=== PATIENT | female | born 1940 | race Caucasian/White ===

== ENCOUNTER 2022-07-22 09:27 | Outpatient (REF) | payer MEDICARE, SELFPAY ==
[2022-07-22 11:14] LABS: MANUAL DIFF FLAG NO
[2022-07-22 11:22] LABS: Basophils Percent Auto 0.5 % (0-2); Eosinophils Absolute Auto 0.1 X10*3/uL (0.0-0.4); Eosinophils Percent Auto 1.3 % (0-4); Hematocrit 41.9 % (37.0-47.0); Hemoglobin 13.6 g/dl (12.0-16.0); Imm Gran Abs Auto 0.03 X10*3/uL (0.00-0.03); Imm Gran Pct Auto 0.4 % (0.0-0.4); Lymphocytes Absolute Auto 2.1 X10*3/uL (1.2-4.9); Lymphocytes Percent Auto 25.1 % (20-40); Mean Corpuscular HGB Conc 32.5 g/dl (31.0-35.0); Mean Corpuscular Hemoglobin 31.2 pg (27.0-33.0); Mean Corpuscular Volume 96.1 fL (80.0-98.0); Mean Platelet Volume 10.5 fL (9.4-12.3); Monocytes Absolute Auto 0.6 X10*3/uL (0.1-1.2); Monocytes Percent Auto 7.5 % (2-11); Neutrophils Absolute Auto 5.4 x10*3/uL (2.0-8.3); Neutrophils Percent Auto 65.2 % (45-73); Platelet Count 250 X10*3/uL (160-400); Red Blood Count 4.36 X10*6/uL (4.20-5.50); Red Cell Distribution Width 14.4 % (11.0-16.0); White Blood Count 8.3 X10*3/uL (4.8-10.8)
[2022-07-22 11:55] LABS: Alanine Aminotransferase 10 U/L (0-31); Anion Gap 14 (12-20); Aspartate Amino Transferase 16 U/L (5-31); Blood Urea Nitrogen 16 mg/dL (9-16); Calcium 9.5 mg/dL (8.4-10.2); Carbon Dioxide 26 mmol/L (22-29); Chloride 106 mmol/L (96-108); Cholesterol 180 mg/dL; Estimated Glomerular Filt Rate > 60; Glucose Fasting 91 mg/dL (60-99); HDL Cholesterol 68 mg/dL; LDL Cholesterol Calculated 97 mg/dl; Potassium 4.4 mmol/L (3.3-5.1); Sodium 142 mmol/L (135-145); Triglycerides 76 mg/dL
[2022-07-22 11:57] LABS: Free T4 (Free Thyroxine) 1.14 ng/dL (0.71-1.85); Thyroid Stimulating Hormone 0.88 uIU/mL (0.32-4.0); Vitamin D 25-OH Total 22.8 ng/mL (>30)
== END 2022-07-22 09:28 | disposition home or self-care (01) ==
LOC: HO.HMGCLDS 09:27
PROVIDERS: PCP Internal Medicine; Visit Provider Internal Medicine
DX: E78.5 Hyperlipidemia, unspecified (principal); M85.88 Other specified disorders of bone density and structure, other site; E03.9 Hypothyroidism, unspecified
CPT/HCPCS: 36415; 80048; 80061; 82306; 84439; 84443; 84450; 84460; 85025

== ENCOUNTER 2022-08-30 09:09 | Outpatient (REF) | payer MEDICARE, SELFPAY ==
--- NOTE | ~2022-08-30 | MM_ITS ---
EXAMINATION: MM SCREENING DIGITAL BREAST TOMOSYNTHESIS, BILATERAL CLINICAL INFORMATION: Screening. Asymptomatic. The lifetime risk of breast cancer based on the Tyrer-Cuzick Model is 1.1%. COMPARISON: Mammography: July 31, 2020 and studies dating back to July 24, 2018 TECHNIQUE: Digital breast tomosynthesis is performed in both the craniocaudal and mediolateral oblique views along with computer-aided detection (CAD). Synthesized 2D images are generated from the tomosynthesis. FINDINGS: There are scattered areas of fibroglandular density (ACR BI-RADS breast composition Category b). There are no significant masses, abnormal calcifications, or other abnormalities. MM/MM tomosynthesis screening BI IMPRESSION: No significant changes from prior exam. ASSESSMENT: BI-RADS 1: Negative RECOMMENDATION: Routine annual mammography screening. This patient's information was entered into a reminder system with a target due date for their next mammogram.
== END 2022-08-30 09:10 | disposition home or self-care (01) ==
LOC: HO.MAMMO 09:09
PROVIDERS: PCP Internal Medicine; Visit Provider Internal Medicine
DX: Z12.31 Encounter for screening mammogram for malignant neoplasm of breast (principal)
CPT/HCPCS: 77063; 77067

== ENCOUNTER 2023-01-18 07:30 | Outpatient (REF) | payer MEDICARE, SELFPAY ==
[2023-01-18 12:58] LABS: Alanine Aminotransferase 10 U/L (0-31); Aspartate Amino Transferase 16 U/L (5-31); Cholesterol 176 mg/dL; HDL Cholesterol 61 mg/dL; LDL Cholesterol Calculated 100 mg/dl; Triglycerides 75 mg/dL
[2023-01-18 13:30] LABS: Free T4 (Free Thyroxine) 1.25 ng/dL (0.71-1.85); Thyroid Stimulating Hormone 1.72 uIU/mL (0.32-4.0); Vitamin D 25-OH Total 32.5 ng/mL (>30)
== END 2023-01-18 07:31 | disposition home or self-care (01) ==
LOC: HO.HMGCLDS 07:30
PROVIDERS: PCP Internal Medicine; Visit Provider Internal Medicine
DX: E03.9 Hypothyroidism, unspecified (principal); E55.9 Vitamin D deficiency, unspecified; M85.88 Other specified disorders of bone density and structure, other site; E78.5 Hyperlipidemia, unspecified
CPT/HCPCS: 36415; 80061; 82306; 84439; 84443; 84450; 84460

== ENCOUNTER 2023-01-19 10:47 | Outpatient (AMB) | payer MEDICARE, SELFPAY ==
--- NOTE | 2023-01-19 11:43 | MHC.PC.OV ---
Vital Signs 01/19/23 11:44 Height 5 ft Weight 137 lb BMI 26.7 BP 130/80 Blood Pressure Location Lt brachial Position Sitting Pulse 100 Pulse Source Pulse Oximeter Pulse Oximetry (%) 98 Oxygen Delivery Method Room Air Intake Visit Reasons: 6 Month ffup lipids ,thyroid Intake Note: Patient here for lipids and thyroid follow up, she would also like to talk about these panic attacks that shes been having lately, she is very anxious as she just had her pass away in september and she doesn't want to go or talk to people she would like to discuss possible med to help with her anxiety. Allergies From LIPITOR Allergy (Severe, Uncoded 05/19/24 00:45) HIVES Medication List - Last Reconciled 01/19/23 by Elizabet Skinner MD Advair Diskus 250-50 mcg/dose (fluticasone propion-salmeterol) 1 ea PO BID NS calcium carb,lactat-vitamin D3 200 mg-6.25 mcg (250 unit) 2 tabs PO DAILY cholecalciferol (vitamin D3) 1,250 mcg PO QWEEK 3 months ezetimibe 10 mg PO DAILY levothyroxine 50 mcg PO DAILY Tobacco use date assessed: 01/19/23 HPI 6 Month ffup lipids ,thyroid HPI Details 82-year-old lady with acquired hypothyroidism, dyslipidemia, here today for her follow-up. She has been compliant with taking her medications and compliant with diet. She however has been having frequent anxiety attacks, since the passing of her 3 and half months ago. Does not want to be referred for counseling but would like to see if she can be prescribe something for her anxiety attacks. [facility] Medical History (Updated 05/19/24 @ 00:59 by Elizabet Skinner MD) Depression with anxiety Vitamin D deficiency Hiatal hernia COPD (chronic obstructive pulmonary disease) Osteopenia of lumbar spine Acquired hypothyroidism Dyslipidemia Osteoarthritis Carpal tunnel syndrome on both sides Hx of gallstones Surgical History Hx laparoscopic cholecystectomy History of partial hysterectomy Hx of appendectomy Family History Mother CVA (cerebral vascular accident) Acquired hypothyroidism Atrial fibrillation Father CVA (cerebral vascular accident) Diabetes mellitus Brother Diabetes mellitus Social History Housing: House Patient Tobacco Use Status: Former Tobacco user e-Cigarette/Vaping Use: Never Used Current occupational status: retired Cognitive needs: No Hearing needs: No Vision needs: Yes Questionnaire PHQ-9 Over the last 2 weeks, how often have you been bothered by any of the following problems? 1. Little interest or pleasure in doing things: several days 2. Feeling down, depressed, or hopeless: several days 3. Trouble falling or staying asleep, or sleeping too much: several days 4. Feeling tired or having little energy: not at all 5. Poor appetite or overeating: several days 6. Feeling bad about yourself - or that you are a failure or have let yourself or your family down: not at all 7. Trouble concentrating on things, such as reading the newspaper or watching television: several days 8. Moving or speaking so slowly that other people could have noticed. Or the opposite - being so fidgety or restless that you have been moving around a lot more than usual: not at all 9. Thoughts that you would be better off or of hurting yourself in some way: not at all Total score: 5 Depression Screening Interpretation: Positive (Depression and anxiety, started on buspirone today. Referred to our mental health coordinator for assistance in getting in to see therapy) Depression Screening Follow-up: New Medication prescribed and Community Mental Health Worker F/U Source: Developed by Drs. Alireza Donovan, Guadalupe Lopez, Sanjeev Mari and colleagues, with an educational keely from [employer]. Thrive Questionnaire Date Thrive assessed: 07/22/22 CHRISTIANO-7 AMB Questionnaire CHRISTIANO-7 Date CHRISTIANO - 7 assessed: 01/19/23 Feeling nervous, anxious, or on edge: 1 = Several days Not being able to stop or control worryin = Several days Worrying too much about different things: 1 = Several days Trouble relaxin = Several days Being so restless that it is hard to sit still: 0 = Not at all Becoming easily annoyed or irritable: 1 = Several days Feeling afraid as if something awful might happen: 0 = Not at all Total CHRISTIANO-7 score (0-4 normal; 5-9 mild; 10-14 moderate; 15-21 severe): 5 Source: Developed by Drs. Alireza Donovan, Guadalupe Lopez, Sanjeev Mari and colleagues, with an educational keely from [employer]. CHRISTIANO-7 Assessment Billing CHRISTIANO-7 Assessment Tool: CHRISTIANO-7 Assessment 53073 Review of Systems Const Denies fatigue, Denies fever(s), Denies headache(s) and Denies weakness ENT Denies dizziness, Denies headache(s), Denies nasal congestion, Denies nasal discharge and Denies sore throat Card Denies chest pain, Denies lightheadedness, Denies palpitations and Denies dyspnea Resp Denies chest congestion, Denies cough and Denies dyspnea GI Denies abdominal pain, Denies change in bowel habits and Denies heartburn Denies hematuria, Denies urinary frequency, Denies dysuria and Denies urinary urgency Musc Denies deformity, Reports arthralgias (Fingers and wrist), Denies joint swelling and Denies limited range of motion Skin/Breast Denies breast pain, Denies breast mass, Denies lesions and Denies rash Neuro Denies dizziness, Denies headache(s) and Denies weakness Psych Reports as per HPI Endo Denies fatigue, Denies polydipsia, Denies polyuria and Denies palpitations Physical exam (Primary Care) Vital Signs: Last Vital Signs Pulse 100 01/19/23 11:44 BP 130/80 01/19/23 11:44 Pulse Ox 98 01/19/23 11:44 Oxygen Delivery Method Room Air 01/19/23 11:44 BMI result Body Mass Index 26.7 Tobacco/Smoking Status: Tobacco use Status Tobacco use date assessed 01/19/23 01/19/23 11:50 Patient Tobacco Use Status Current someday Tobacco 01/19/23 11:50 e-Cigarette/Vaping Use Never Used 01/19/23 11:50 PHQ-9: PHQ-9 Score PHQ-9: Total score 5 05/19/24 00:56 Depression Screening Interpretation: Positive (Depression and anxiety, started on buspirone today. Referred to our mental health coordinator for assistance in getting in to see therapy) Depression Screening Follow-up: New Medication prescribed and Community Mental Health Worker F/U Thrive Assessment: Date of Thrive Assessment Date Thrive assessed 07/22/22 01/19/23 11:50 Const General: comfortable, no acute distress, alert and Physically active Orientation/consciousness: patient oriented x3 HENMT Head: Yes normocephalic and Yes atraumatic Ears: hearing grossly normal bilaterally, external ears normal, TM's normal bilaterally and EAC's normal General nose exam: Normal external nose present and No nasal discharge present Face and sinus: Yes face symmetric Mouth: Normal oral and palatal mucosa present, tongue normal, oropharynx normal and moist mucous membranes Eyes General: appearance normal, both eyes and all related structures Neck Other: Supple, no lymphadenopathy, thyroid gland nonpalpable and nontender to palpation Chest Breast/axilla palpation: normal palpation of the breasts Resp Effort & Inspection: normal respiratory effort and able to speak in complete sentences Auscultation: clear to auscultation bilaterally Cardio Other: S1-S2 present regular rate and rhythm GI Palpation (GI): Soft to palpation, nontender, no guarding and no masses Auscultation: normal bowel sounds Back/Spine/Pelvis Back: No back tenderness Neuro General: patient oriented x3, gait normal, tone normal, moves all extremities, Normal light touch and pain sensation, no focal motor deficits and CN's II-XI intact bilaterally Cognition (Neuro): normal cognition Gait exam (Neuro): Normal gait present Extrem General: Yes full ROM, Yes no joint enlargement, Yes no clubbing, cyanosis or edema, Yes no calf tenderness and Yes normal gait Psych Appearance: grossly normal and well kempt Mental Status: mental status grossly normal Speech and movement: Normal speech and movement present and Clear speech present Affect: Sad affect present Attitude: cooperative Thought process: Normal thought process present Results Reviewed Results Reviewed: ENTERED: 01/18/23 OTHR HOLMAN: ORDERED: AST, ALT, Lipid Panel, Vitamin D 25-OH, Free T4, TSH Test Result Flag Reference Site AST (GOT) 16 5-31 U/L ALT (GPT) 10 0-31 U/L Triglyceride 75 mg/dL Desirable Triglyceride: less than 150 mg/dL Borderline High Triglyceride 150-199 mg/dL High Triglyceride: 200-499 mg/dL Very High Triglyceride: greater than or equal to 5OO mg/dL Chol 176 mg/dL Desirable Cholesterol: less than 200 mg/dL Borderline High Cholesterol: 200-239 mg/dL High Cholesterol: greater than 239 mg/dL LDL Calculated 100 mg/dl Desirable LDL: less than 100 mg/dL Near Optimal/Above Optimal LDL: 110-129 mg/dL Borderline High LDL: 130-159 mg/dL High LDL: 160-189 mg/dL Very High LDL: greater than or equal to 190 mg/dL HDL 61 mg/dL Desirable HDL: greater than 40 mg/dL Note: This HDL assay may give artificially low results in patients with liver disease. Vit D 25-OH Tot 32.5 >30 ng/mL Health Based Reference Values* < 20 ng/mL Deficient 20-30 ng/mL Insufficient > 30 ng/mL Sufficient *Amaris MILLER. N Engl J Med. 2007;357:266-280 Care must be taken in interpreting Vitamin D results from different laboratories and methodologies. Published data demonstrated that results from patients undergoing hemodialysis may show a negative bias when tested with various automated 25-OH vitamin D assays when compared to LC-MS/MS. When testing samples from patients whose predominant form of Vitamin D is Vitamin D2, such as patients receiving Vitamin D2 supplementation, results that are subtherapeutic should be confirmed with another method such as LC-MS/MS. Free T4 1.25 0.71-1.85 ng/dL TSH 3rd Gen. 1.72 0.32-4.0 uIU/mL TSH 3rd Generation ([facility]) Assessment and Plan Assessment & Plan (1) Acquired hypothyroidism: Code(s): E03.9 - Hypothyroidism, unspecified Plan: Latest thyroid levels are within normal limits, will continue on current dose of levothyroxine 50 mcg daily (2) Dyslipidemia: Code(s): E78.5 - Hyperlipidemia, unspecified Plan: Reviewed recent fasting lipid profile with patient with levels within normal limits . Continue ezetimibe 10 mg daily , in addition to adherence to low-cholesterol diet and regular exercise, at least 30 minutes 3 to 4 times a week. Advised patient to make healthy food choices, eat more fruits, vegetables, whole grains, wild caught fish and low-fat dairy. Limit amount of meat and fried or fatty food products, as well as processed foods and fast foods. Follow-up scheduled with repeat fasting lipid panel in months. (3) Depression with anxiety: Code(s): F41.8 - Other specified anxiety disorders Plan: Referred to [facility] mental health coordinator for assistance in getting in to see a therapist but patient declines, stating she has a very good support system with her family. Will start her on buspirone 5 mg per tablet to take 1 tablet twice a day. Will see her back for follow-up in 4 weeks Medications: New buspirone 5 mg PO TID 90 tabs 1RF F41.8 - Other specified anxiety disorders Coding Level of Care Code Est Pt Level 4 (45925) Complex EM visit Add On G2211 Diagnoses Acquired hypothyroidism E03.9 Dyslipidemia E78.5 Depression with anxiety F41.8 Additional Codes CHRISTIANO-7 Assessment Billing - CHRISTIANO-7 Assessment Tool: CHRISTIANO-7 Assessment 70627 ([id number])
[2023-01-19 11:44] VITALS: BP 130/80; PULSE 100; O2SAT 98; BMI 26.7
== END 2023-01-19 12:40 | disposition home or self-care (01) ==
LOC: HO.HMGC 10:47
PROVIDERS: PCP Internal Medicine; Visit Provider Internal Medicine
DX: E03.9 Hypothyroidism, unspecified (principal); E78.5 Hyperlipidemia, unspecified; F41.8 Other specified anxiety disorders
CPT/HCPCS: 99499

== ENCOUNTER 2023-02-16 10:18 | Outpatient (AMB) | payer MEDICARE, SELFPAY ==
--- NOTE | 2023-02-16 10:26 | MHC.PC.OV ---
Vital Signs 02/16/23 10:28 Height 5 ft Weight 137 lb 4 oz BMI 26.8 BP 102/58 L Blood Pressure Location Rt brachial Position Sitting Pulse 79 Pulse Source Pulse Oximeter Pulse Oximetry (%) 98 Oxygen Delivery Method Room Air Intake Visit Reasons: 4wk follow up Intake Note: Pt is here today for her 4 week f/u Allergies From LIPITOR Allergy (Severe, Uncoded 05/19/24 00:45) HIVES Medication List - Last Reconciled 02/16/23 by Elizabet Skinner MD Advair Diskus 250-50 mcg/dose (fluticasone propion-salmeterol) 1 ea PO BID NS buspirone 5 mg PO TID calcium carb,lactat-vitamin D3 200 mg-6.25 mcg (250 unit) 2 tabs PO DAILY ezetimibe 10 mg PO DAILY levothyroxine 50 mcg PO DAILY Tobacco use date assessed: 02/16/23 Fall risk assessment: No Falls in past year Last assessed Fall Risk: 02/16/23 HPI 4wk follow up HPI Details 83-year-old lady here today for follow-up on her depression and anxiety. Was prescribed buspirone 5 mg but stopped taking it stating that she has been feeling better with regards to her anxiety depression. [facility] Medical History (Updated 05/19/24 @ 01:08 by Elizabet Skinner MD) Vitamin D deficiency Hiatal hernia COPD (chronic obstructive pulmonary disease) Osteopenia of lumbar spine Acquired hypothyroidism Dyslipidemia Osteoarthritis Carpal tunnel syndrome on both sides Hx of gallstones Surgical History Hx laparoscopic cholecystectomy History of partial hysterectomy Hx of appendectomy Family History Mother CVA (cerebral vascular accident) Acquired hypothyroidism Atrial fibrillation Father CVA (cerebral vascular accident) Diabetes mellitus Brother Diabetes mellitus Social History Housing: House Patient Tobacco Use Status: Former Tobacco user e-Cigarette/Vaping Use: Never Used Current occupational status: retired Cognitive needs: No Hearing needs: No Vision needs: Yes Questionnaire Thrive Questionnaire Date Thrive assessed: 07/22/22 AUDIT C Alcohol Use Questionnaire (AUDIT-C) 1. How often do you have a drink containing alcohol?: Monthly or less 2. How many drinks containing alcohol do you have on a typical day when you are drinking?: 1 or 2 3. How often do you have six or more drinks on one occasion?: Never Total Score: 1 CHRISTIANO-7 AMB Questionnaire CHRISTIANO-7 Date CHRISTIANO - 7 assessed: 01/19/23 Source: Developed by Drs. Alireza Donovan, Guadalupe Lopez, Sanjeev Mari and colleagues, with an educational keely from [employer]. Review of Systems Const Denies fatigue, Denies headache(s) and Denies weakness ENT Denies dizziness, Denies headache(s) and Denies nasal congestion Card Denies chest pain, Denies lightheadedness, Denies palpitations and Denies dyspnea Resp Denies chest congestion, Denies cough and Denies dyspnea GI Denies abdominal pain, Denies change in bowel habits and Denies heartburn Denies hematuria, Denies urinary frequency, Denies dysuria and Denies urinary urgency Musc Denies deformity, Reports arthralgias (Fingers and wrist), Denies joint swelling and Denies limited range of motion Neuro Denies dizziness, Denies headache(s) and Denies weakness Psych Reports no additional complaints, Denies anxiety and Denies depression Endo Denies fatigue, Denies polydipsia, Denies polyuria and Denies palpitations Bandar/Lymph Reports no additional complaints Aller/Immun Reports no additional complaints Physical exam (Primary Care) Vital Signs: Last Vital Signs Pulse 79 02/16/23 10:28 BP 102/58 L 02/16/23 10:28 Pulse Ox 98 02/16/23 10:28 Oxygen Delivery Method Room Air 02/16/23 10:28 BMI result Body Mass Index 26.8 Tobacco/Smoking Status: Tobacco use Status Tobacco use date assessed 02/16/23 02/16/23 10:37 Patient Tobacco Use Status Current someday Tobacco 02/16/23 10:26 e-Cigarette/Vaping Use Never Used 02/16/23 10:26 Thrive Assessment: Date of Thrive Assessment Date Thrive assessed 07/22/22 02/16/23 10:26 Const General: no acute distress and alert Orientation/consciousness: patient oriented x3 HENMT Head: Yes normocephalic Ears: external ears normal General nose exam: Normal external nose present Face and sinus: Yes face symmetric Mouth: Normal oral and palatal mucosa present, tongue normal and moist mucous membranes Eyes General: appearance normal, both eyes and all related structures Neck Other: Supple, no lymphadenopathy, thyroid gland nonpalpable and nontender to palpation Resp Effort & Inspection: normal respiratory effort and able to speak in complete sentences Auscultation: clear to auscultation bilaterally Cardio Other: S1-S2 present regular rate and rhythm GI Palpation (GI): Soft to palpation, nontender, no guarding and no masses Auscultation: normal bowel sounds Back/Spine/Pelvis Back: No back tenderness Neuro General: patient oriented x3, gait normal, tone normal, moves all extremities, Normal light touch and pain sensation, no focal motor deficits and CN's II-XI intact bilaterally Cognition (Neuro): normal cognition Gait exam (Neuro): Normal gait present Extrem General: Yes full ROM, Yes no joint enlargement, Yes no clubbing, cyanosis or edema, Yes no calf tenderness and Yes normal gait Psych Appearance: grossly normal and well kempt Mental Status: mental status grossly normal Speech and movement: Normal speech and movement present and Clear speech present Affect: normal affect Attitude: cooperative Thought process: Normal thought process present Results Reviewed Results Reviewed: Name: Vikki Phillips Age/Sex: 82/F : 1940 Unit#: [id number] Attend Dr: Elizabet Skinner MD Re01/18/23 Status: DEP REF Location: [facility] Disch: SPEC : [id number] GABRIELA: 01/18/23 STATUS: COMP REQ : [id number] RECD: 01/18/[address]: Elizabet Skinner MD COMP: 01/18/23 ENTERED: 01/18/[address]: ORDERED: AST, ALT, Lipid Panel, Vitamin D 25-OH, Free T4, TSH Test Result Flag Reference Site AST (GOT) 16 5-31 U/L ALT (GPT) 10 0-31 U/L Triglyceride 75 mg/dL Desirable Triglyceride: less than 150 mg/dL Borderline High Triglyceride 150-199 mg/dL High Triglyceride: 200-499 mg/dL Very High Triglyceride: greater than or equal to 5OO mg/dL Chol 176 mg/dL Desirable Cholesterol: less than 200 mg/dL Borderline High Cholesterol: 200-239 mg/dL High Cholesterol: greater than 239 mg/dL LDL Calculated 100 mg/dl Desirable LDL: less than 100 mg/dL Near Optimal/Above Optimal LDL: 110-129 mg/dL Borderline High LDL: 130-159 mg/dL High LDL: 160-189 mg/dL Very High LDL: greater than or equal to 190 mg/dL HDL 61 mg/dL Desirable HDL: greater than 40 mg/dL Note: This HDL assay may give artificially low results in patients with liver disease. Vit D 25-OH Tot 32.5 >30 ng/mL Health Based Reference Values* < 20 ng/mL Deficient 20-30 ng/mL Insufficient > 30 ng/mL Sufficient *Amaris MILLER. N Engl J Med. 2007;357:266-280 Care must be taken in interpreting Vitamin D results from different laboratories and methodologies. Published data demonstrated that results from patients undergoing hemodialysis may show a negative bias when tested with various automated 25-OH vitamin D assays when compared to LC-MS/MS. When testing samples from patients whose predominant form of Vitamin D is Vitamin D2, such as patients receiving Vitamin D2 supplementation, results that are subtherapeutic should be confirmed with another method such as LC-MS/MS. Free T4 1.25 0.71-1.85 ng/dL TSH 3rd Gen. 1.72 0.32-4.0 uIU/mL TSH 3rd Generation ([facility]) Assessment and Plan Assessment & Plan (1) COPD (chronic obstructive pulmonary disease): Code(s): J44.9 - Chronic obstructive pulmonary disease, unspecified Plan: Currently controlled on Wixela 250-50 mcg per dose 1 inhalation every 12 hours and uses albuterol inhaler as needed for episodes of wheezing and bronchospasm. (2) Osteopenia of lumbar spine: Comment: last bone density 2020 per pt Code(s): M85.88 - Other specified disorders of bone density and structure, other site Plan: Continue with staying active doing regular weight-bearing exercise. Continue with calcium and vitamin-D 3 supplement Orders: Orders Lipid Panel 6 Months E55.9 - Vitamin D deficiency, unspecified, J44.9 - Chronic obstructive pulmonary disease, unspecified, M85.88 - Other specified disorders of bone density and structure, other site, E03.9 - Hypothyroidism, unspecified, E78.5 - Hyperlipidemia, unspecified, Z78.0 - Asymptomatic menopausal state Free T4 (Free Thyroxine) 6 Months E03.9 - Hypothyroidism, unspecified, E55.9 - Vitamin D deficiency, unspecified, J44.9 - Chronic obstructive pulmonary disease, unspecified, M85.88 - Other specified disorders of bone density and structure, other site, E78.5 - Hyperlipidemia, unspecified, Z78.0 - Asymptomatic menopausal state Thyroid Stimulating Hormone 6 Months E55.9 - Vitamin D deficiency, unspecified, J44.9 - Chronic obstructive pulmonary disease, unspecified, M85.88 - Other specified disorders of bone density and structure, other site, E03.9 - Hypothyroidism, unspecified, E78.5 - Hyperlipidemia, unspecified, Z78.0 - Asymptomatic menopausal state Alanine Aminotransferase 6 Months E55.9 - Vitamin D deficiency, unspecified, J44.9 - Chronic obstructive pulmonary disease, unspecified, M85.88 - Other specified disorders of bone density and structure, other site, E03.9 - Hypothyroidism, unspecified, E78.5 - Hyperlipidemia, unspecified, Z78.0 - Asymptomatic menopausal state Aspartate Amino Transferase 6 Months E55.9 - Vitamin D deficiency, unspecified, J44.9 - Chronic obstructive pulmonary disease, unspecified, M85.88 - Other specified disorders of bone density and structure, other site, E03.9 - Hypothyroidism, unspecified, E78.5 - Hyperlipidemia, unspecified, Z78.0 - Asymptomatic menopausal state Vitamin D 25-OH Total 6 Months E55.9 - Vitamin D deficiency, unspecified, J44.9 - Chronic obstructive pulmonary disease, unspecified, M85.88 - Other specified disorders of bone density and structure, other site, E03.9 - Hypothyroidism, unspecified, E78.5 - Hyperlipidemia, unspecified, Z78.0 - Asymptomatic menopausal state Medications: Refilled ezetimibe 10 mg PO DAILY 30 tabs 5RF Coding Level of Care Code Est Pt Level 4 (84277) Complex EM visit Add On G2211 Diagnoses COPD (chronic obstructive pulmonary disease) J44.9 Osteopenia of lumbar spine M85.88
[2023-02-16 10:28] VITALS: BP 102/58; PULSE 79; O2SAT 98; BMI 26.8
== END 2023-02-16 11:28 | disposition home or self-care (01) ==
LOC: HO.HMGC 10:18
PROVIDERS: PCP Internal Medicine; Visit Provider Internal Medicine
DX: J44.9 Chronic obstructive pulmonary disease, unspecified (principal); M85.88 Other specified disorders of bone density and structure, other site
CPT/HCPCS: 99499

== ENCOUNTER 2023-08-09 13:01 | Outpatient (AMB) | payer MEDICARE, SELFPAY ==
[2023-08-09 13:06] VITALS: BP 120/70; PULSE 77; O2SAT 98; BMI 26.4
--- NOTE | 2023-08-09 13:06 | A.OFFPC_ITS ---
Vital Signs 08/09/23 13:06 Height 5 ft Weight 135 lb BMI 26.4 BP 120/70 Blood Pressure Location Lt brachial Position Sitting Pulse 77 Pulse Source Pulse Oximeter Pulse Oximetry (%) 98 Oxygen Delivery Method Room Air Intake Visit Reasons: 6m follow up / Rash On Body Intake Note: patient is here today for her 6mo. f/u rash on body Allergies From [facility] Allergy (Severe, Uncoded 05/19/24 00:45) HIVES Medication List - Last Reconciled 08/09/23 by Elizabet Skinner MD Advair Diskus 250-50 mcg/dose (fluticasone propion-salmeterol) 1 ea PO BID NS calcium carb,lactat-vitamin D3 200 mg-6.25 mcg (250 unit) 2 tabs PO DAILY ezetimibe 10 mg PO DAILY levothyroxine 50 mcg PO DAILY Tobacco use date assessed: 08/09/23 Fall risk assessment: 2 + Falls in past year Last assessed Fall Risk: 08/09/23 Dental Screening Dental Screen Date: 08/09/23 Did you have a dental visit in the last 12 months?: Yes Did you have a dental problem in the last 6 months where you did not have access to dental care?: No Was dental information given to patient?: Patient has dentist HPI 6m follow up / Rash On Body HPI Details 83-year-old lady with hypothyroidism, [place] PD, osteopenia and dyslipidemia, here today for her six-month follow-up. Has been compliant with taking her medications and tries to follow recommended diet, stays active. Complains of recurrent itchiness all over her body especially at night. States that she can feel some rough patches on her arms and legs which are itchy. None seen during this visit [facility] Medical History Anxious depression Vitamin D deficiency Hiatal hernia COPD (chronic obstructive pulmonary disease) Osteopenia of lumbar spine Acquired hypothyroidism Dyslipidemia Osteoarthritis Carpal tunnel syndrome on both sides Hx of gallstones Surgical History Hx laparoscopic cholecystectomy History of partial hysterectomy Hx of appendectomy Family History Mother CVA (cerebral vascular accident) Acquired hypothyroidism Atrial fibrillation Father CVA (cerebral vascular accident) Diabetes mellitus Brother Diabetes mellitus Social History Housing: House Patient Tobacco Use Status: Former Tobacco user e-Cigarette/Vaping Use: Never Used Current occupational status: retired Cognitive needs: No Hearing needs: No Vision needs: Yes Questionnaire Thrive Questionnaire Date Thrive assessed: 07/22/22 AUDIT C Alcohol Use Questionnaire (AUDIT-C) 1. How often do you have a drink containing alcohol?: Monthly or less 2. How many drinks containing alcohol do you have on a typical day when you are drinking?: 1 or 2 Total Score: 1 CHRISTIANO-7 AMB Questionnaire CHRISTIANO-7 Date CHRISTIANO - 7 assessed: 01/19/23 Source: Developed by Drs. Alireza Donovan, Guadalupe Lopez, Sanjeev Mari and colleagues, with an educational keely from [employer]. Review of Systems Const Denies fatigue, Denies fever(s), Denies headache(s) and Denies weakness ENT Denies dizziness, Denies headache(s), Denies nasal congestion, Denies nasal discharge and Denies sore throat Card Denies chest pain, Denies lightheadedness, Denies palpitations and Denies dyspnea Resp Denies chest congestion, Denies cough and Denies dyspnea GI Denies abdominal pain, Denies change in bowel habits and Denies heartburn Denies hematuria, Denies urinary frequency, Denies dysuria and Denies urinary urgency Musc Denies deformity, Reports arthralgias (Fingers and wrist), Denies joint swelling and Denies limited range of motion Skin/Breast Reports as per HPI Neuro Denies dizziness, Denies headache(s) and Denies weakness Psych Reports as per HPI Endo Denies fatigue, Denies polydipsia, Denies polyuria and Denies palpitations Bandar/Lymph Reports no additional complaints Aller/Immun Reports no additional complaints Physical exam (Primary Care) Vital Signs: Last Vital Signs Pulse 77 08/09/23 13:06 BP 120/70 08/09/23 13:06 Pulse Ox 98 08/09/23 13:06 Oxygen Delivery Method Room Air 08/09/23 13:06 BMI result Body Mass Index 26.4 Tobacco/Smoking Status: Tobacco use Status Tobacco use date assessed 08/09/23 08/09/23 13:08 Patient Tobacco Use Status Former Tobacco user 08/09/23 13:28 e-Cigarette/Vaping Use Never Used 08/09/23 13:08 Thrive Assessment: Date of Thrive Assessment Date Thrive assessed 07/22/22 08/09/23 13:08 Const General: comfortable, no acute distress, alert and Physically active Orientation/consciousness: patient oriented x3 HENMT Head: Yes normocephalic Ears: hearing grossly normal bilaterally, external ears normal, TM's normal bilaterally and EAC's normal General nose exam: Normal external nose present and No nasal discharge present Face and sinus: Yes face symmetric Mouth: Normal oral and palatal mucosa present, tongue normal, oropharynx normal and moist mucous membranes Eyes General: appearance normal, both eyes and all related structures Neck Other: Supple, no lymphadenopathy, thyroid gland nonpalpable and nontender to palpation Chest Breast/axilla palpation: normal palpation of the breasts Resp Effort & Inspection: normal respiratory effort and able to speak in complete sentences Auscultation: clear to auscultation bilaterally Cardio Other: S1-S2 present regular rate and rhythm GI Palpation (GI): Soft to palpation, nontender, no guarding and no masses Auscultation: normal bowel sounds Back/Spine/Pelvis Back: No back tenderness Skin General skin exam: ecchymosis (On arms noted), no purpura and no scars Neuro General: patient oriented x3, gait normal, tone normal, moves all extremities, Normal light touch and pain sensation, no focal motor deficits and CN's II-XI intact bilaterally Cognition (Neuro): normal cognition Gait exam (Neuro): Normal gait present Extrem General: Yes full ROM, Yes no joint enlargement, Yes no clubbing, cyanosis or edema, Yes no calf tenderness and Yes normal gait Psych Appearance: grossly normal and well kempt Mental Status: mental status grossly normal Speech and movement: Normal speech and movement present and Clear speech present Affect: normal affect Attitude: cooperative Thought process: Normal thought process present Assessment and Plan Assessment & Plan (1) Generalized pruritus: Code(s): L29.9 - Pruritus, unspecified Plan: Prescription sent for hydroxyzine 10 mg per tablet to take 1 tablet at bedtime as needed for itching. Return to clinic if no improvement of symptoms (2) Multiple ecchymoses of both upper arms: Code(s): R58 - Hemorrhage, not elsewhere classified Plan: Labs ordered to check complete blood count, comprehensive metabolic panel, vitamin-D level and TSH Orders: Orders Complete Blood Count Auto Diff 08/10/23 R58 - Hemorrhage, not elsewhere classified, L29.9 - Pruritus, unspecified Comprehensive [place]. Panel Fast 08/10/23 R58 - Hemorrhage, not elsewhere classified, L29.9 - Pruritus, unspecified Vitamin D 25-OH Total 08/09/23 R58 - Hemorrhage, not elsewhere classified, L29.9 - Pruritus, unspecified Thyroid Stimulating Hormone 08/09/23 R58 - Hemorrhage, not elsewhere classified, L29.9 - Pruritus, unspecified Medications: New hydroxyzine HCl 10 mg PO BEDTIME PRN 30 tabs 0RF itching Coding Level of Care Code Est Pt Level 4 (24138) Diagnoses Generalized pruritus L29.9 Multiple ecchymoses of both upper arms R58
== END 2023-08-09 14:05 | disposition home or self-care (01) ==
PROVIDERS: PCP Internal Medicine; Visit Provider Internal Medicine
DX: L29.9 Pruritus, unspecified (principal); R58 Hemorrhage, not elsewhere classified
CPT/HCPCS: 99214

== ENCOUNTER 2023-08-10 08:05 | Outpatient (REF) | payer MEDICARE, SELFPAY ==
[2023-08-10 11:36] LABS: MANUAL DIFF FLAG NO
[2023-08-10 11:51] LABS: Basophils Absolute Auto 0.1 X10*3/uL (0.0-0.2); Basophils Percent Auto 0.6 % (0-2); Eosinophils Absolute Auto 0.2 X10*3/uL (0.0-0.4); Eosinophils Percent Auto 2.7 % (0-4); Hematocrit 39.2 % (37.0-47.0); Hemoglobin 12.7 g/dl (12.0-16.0); Imm Gran Abs Auto 0.02 X10*3/uL (0.00-0.03); Imm Gran Pct Auto 0.2 % (0.0-0.4); Lymphocytes Absolute Auto 2.9 X10*3/uL (1.2-4.9); Lymphocytes Percent Auto 35.8 % (20-40); Mean Corpuscular HGB Conc 32.4 g/dl (31.0-35.0); Mean Corpuscular Hemoglobin 32.1 pg (27.0-33.0); Monocytes Absolute Auto 0.7 X10*3/uL (0.1-1.2); Monocytes Percent Auto 8.4 % (2-11); Neutrophils Absolute Auto 4.2 x10*3/uL (2.0-8.3); Neutrophils Percent Auto 52.3 % (45-73); Platelet Count 279 X10*3/uL (160-400); Red Blood Count 3.96 X10*6/uL (4.20-5.50); Red Cell Distribution Width 13.8 % (11.0-16.0); White Blood Count 8.1 X10*3/uL (4.8-10.8)
[2023-08-10 12:15] LABS: Alanine Aminotransferase 7 U/L (0-31); Alkaline Phosphatase 65 U/L (39-117); Anion Gap 13 (12-20); Aspartate Amino Transferase 15 U/L (5-31); Bilirubin Total 0.4 mg/dL (0.0-1.0); Blood Urea Nitrogen 19 mg/dL (9-16); Calcium 9.9 mg/dL (8.4-10.2); Carbon Dioxide 27 mmol/L (22-29); Chloride 108 mmol/L (96-108); Cholesterol 183 mg/dL (<200); Estimated Glomerular Filt Rate > 60; Glucose Fasting 84 mg/dL (60-99); HDL Cholesterol 64 mg/dL (>40); LDL Cholesterol Calculated 105 mg/dL (<100); Potassium 4.5 mmol/L (3.3-5.1); Sodium 143 mmol/L (135-145); Total Protein 6.8 g/dL (6.5-8.0); Triglycerides 72 mg/dL (<150)
[2023-08-10 12:37] LABS: Free T4 (Free Thyroxine) 1.05 ng/dL (0.71-1.85); Thyroid Stimulating Hormone 2.25 uIU/mL (0.32-4.0); Vitamin D 25-OH Total 33.8 ng/mL (>30)
== END 2023-08-10 08:06 | disposition home or self-care (01) ==
LOC: HO.HMGCLDS 08:05
PROVIDERS: PCP Internal Medicine; Visit Provider Internal Medicine
DX: E03.9 Hypothyroidism, unspecified (principal); E55.9 Vitamin D deficiency, unspecified; J44.9 Chronic obstructive pulmonary disease, unspecified; M85.88 Other specified disorders of bone density and structure, other site; E78.5 Hyperlipidemia, unspecified; Z78.0 Asymptomatic menopausal state; R58 Hemorrhage, not elsewhere classified; L29.9 Pruritus, unspecified
CPT/HCPCS: 36415; 80053; 80061; 82306; 84439; 84443; 85025

== ENCOUNTER 2023-09-22 11:28 | Outpatient (REF) | payer MEDICARE, SELFPAY | END 2023-09-22 11:29 | disposition home or self-care (01) | LOC: HO.MAMMO 11:28 | PROVIDERS: PCP Internal Medicine; Visit Provider Internal Medicine | DX: Z12.31 Encounter for screening mammogram for malignant neoplasm of breast (principal) | CPT/HCPCS: 77063; 77067 ==

== ENCOUNTER → 2023-09-22 11:45 | Outpatient (BNV) | payer MEDICARE, SELFPAY | PROVIDERS: PCP Internal Medicine; Visit Provider Radiology Diagnostic Radiology | DX: Z12.31 Encounter for screening mammogram for malignant neoplasm of breast (principal) | CPT/HCPCS: 77063; 77067 ==

== ENCOUNTER 2024-02-09 07:03 | Outpatient (REF) | payer MEDICARE, SELFPAY ==
[2024-02-09 11:39] LABS: Alanine Aminotransferase 11 U/L (0-31); Aspartate Amino Transferase 14 U/L (5-31); Thyroid Stimulating Hormone 2.28 uIU/mL (0.32-4.0); Vitamin D 25-OH Total 36.9 ng/mL (>30)
== END 2024-02-09 07:04 | disposition home or self-care (01) ==
LOC: HO.HMGCLDS 07:03
PROVIDERS: PCP Internal Medicine; Visit Provider Internal Medicine
DX: E55.9 Vitamin D deficiency, unspecified (principal); J44.9 Chronic obstructive pulmonary disease, unspecified; M85.88 Other specified disorders of bone density and structure, other site; E03.9 Hypothyroidism, unspecified; E78.5 Hyperlipidemia, unspecified; R58 Hemorrhage, not elsewhere classified; L29.9 Pruritus, unspecified; Z78.0 Asymptomatic menopausal state
CPT/HCPCS: 36415; 82306; 84443; 84450; 84460

== ENCOUNTER 2024-02-13 11:18 | Outpatient (AMB) | payer MEDICARE, SELFPAY ==
--- NOTE | 2024-02-13 11:20 | MHC.PC.OV ---
Vital Signs 02/13/24 11:28 Height 5 ft Weight 135 lb BMI 26.4 BP 110/60 Blood Pressure Location Rt brachial Position Sitting Pulse 74 Pulse Source Pulse Oximeter Pulse Oximetry (%) 99 Oxygen Delivery Method Room Air Intake Visit Reasons: 6 month fu Intake Note: Pt is here today for her 6mo f/u Allergies From [facility] Allergy (Severe, Uncoded 02/13/24 11:41) HIVES Medication List - Last Reconciled 02/13/24 by Elizabet Skinner MD albuterol sulfate 2.5 mg (3 mL) inhalation QID PRN calcium carb,lactat-vitamin D3 200 mg-6.25 mcg (250 unit) 2 tabs PO DAILY ezetimibe 10 mg PO DAILY ibuprofen-diphenhydramine cit 200-38 mg (Advil PM) 1 cap PO BEDTIME levothyroxine 50 mcg PO DAILY [nebulizer supplies including filter, mouth piece and tubing As directed] Wixela Inhub 250-50 mcg/dose (fluticasone propion-salmeterol) 1 inh inhalation Q12H NS Tobacco use date assessed: 02/13/24 Fall risk assessment: No Falls in past year Last assessed Fall Risk: 02/13/24 Dental Screening Dental Screen Date: 02/13/24 Did you have a dental visit in the last 12 months?: Yes Did you have a dental problem in the last 6 months where you did not have access to dental care?: No Was dental information given to patient?: Patient has dentist HPI 6 month fu HPI Details 83-year-old lady here today for follow-up on her hypothyroidism, and hyperlipidemia. She is currently taking levothyroxine 50 mcg daily and ezetimibe 10 mg once a day. She had recent fasting labs done which showed thyroid levels are within normal limits. Laboratory Tests 02/09/24 07:09 AST 14 ALT 11 25-OH Vitamin D To missael 36.9 TSH 2.28 PFSH Medical History (Updated 02/19/24 @ 02:25 by Elizabet Skinner MD) Depression Generalized pruritus Multiple ecchymoses of both upper arms Anxious depression Vitamin D deficiency Hiatal hernia COPD (chronic obstructive pulmonary disease) Osteopenia of lumbar spine Acquired hypothyroidism Dyslipidemia Osteoarthritis Carpal tunnel syndrome on both sides Hx of gallstones Surgical History Hx laparoscopic cholecystectomy History of partial hysterectomy Hx of appendectomy Family History Mother CVA (cerebral vascular accident) Acquired hypothyroidism Atrial fibrillation Father CVA (cerebral vascular accident) Diabetes mellitus Brother Diabetes mellitus Social History Housing: House Patient Tobacco Use Status: Former Tobacco user e-Cigarette/Vaping Use: Never Used Current occupational status: retired Cognitive needs: No Hearing needs: No Vision needs: Yes Questionnaire PHQ-9 Over the last 2 weeks, how often have you been bothered by any of the following problems? 1. Little interest or pleasure in doing things: several days 2. Feeling down, depressed, or hopeless: several days 3. Trouble falling or staying asleep, or sleeping too much: not at all 4. Feeling tired or having little energy: not at all 5. Poor appetite or overeating: not at all 6. Feeling bad about yourself - or that you are a failure or have let yourself or your family down: several days 7. Trouble concentrating on things, such as reading the newspaper or watching television: not at all 8. Moving or speaking so slowly that other people could have noticed. Or the opposite - being so fidgety or restless that you have been moving around a lot more than usual: not at all 9. Thoughts that you would be better off or of hurting yourself in some way: not at all Total score: 3 Depression Screening Interpretation: Positive (Patient still grieving the loss of her , recently disease, does not want to start any medications, has good family so) Depression Screening Done: Yes 74448 - PHQ-9 Billing: Yes Source: Developed by Drs. Alireza Donovan, Guadalupe Lopez, Sanjeev Mari and colleagues, with an educational keely from [employer]. Thrive Questionnaire Date Thrive assessed: 02/13/24 I am a: Patient What is your living situation today?: I have a steady place to live Within the past 12 months, did the food you bought not last and you didn't have the money to get more?: Never true Within the past 12 months, did you worry whether your food would run out before you got money to buy more?: Never true Do you have trouble paying for medicines?: No Do you have trouble getting transportation to medical appointments?: No Do you have trouble paying your heating and electricity bill?: No Do you have trouble taking care of your child, family member or friend?: No Do you have trouble with day-to-day activities such as bathing, preparing meals, shopping, managing finances, etc.?: No Are you currently unemployed and looking for a job?: No Are you interested in more education?: No THRIVE Score: 0 AUDIT C Alcohol Use Questionnaire (AUDIT-C) 1. How often do you have a drink containing alcohol?: Monthly or less 2. How many drinks containing alcohol do you have on a typical day when you are drinking?: 1 or 2 3. How often do you have six or more drinks on one occasion?: Never Total Score: 1 CHRISTIANO-7 AMB Questionnaire CHRISTIANO-7 Date CHRISTIANO - 7 assessed: 02/13/24 Feeling nervous, anxious, or on edge: 1 = Several days Not being able to stop or control worryin = Several days Worrying too much about different things: 1 = Several days Trouble relaxin = Not at all Being so restless that it is hard to sit still: 0 = Not at all Becoming easily annoyed or irritable: 0 = Not at all Feeling afraid as if something awful might happen: 0 = Not at all Total CHRISTIANO-7 score (0-4 normal; 5-9 mild; 10-14 moderate; 15-21 severe): 3 Source: Developed by Drs. Alireza Donovan, Guadalupe Lopez, Sanjeev Mari and colleagues, with an educational keely from [employer]. CHRISTIANO-7 Assessment Billing CHRISTIANO-7 Assessment Tool: CHRISTIANO-7 Assessment [id number] Review of Systems Const Denies fatigue, Denies fever(s), Denies headache(s) and Denies weakness ENT Denies dizziness, Denies headache(s), Denies nasal congestion, Denies nasal discharge and Denies sore throat Card Denies chest pain, Denies lightheadedness, Denies palpitations and Denies dyspnea Resp Denies chest congestion, Denies cough and Denies dyspnea GI Denies abdominal pain, Denies change in bowel habits and Denies heartburn Denies hematuria, Denies urinary frequency, Denies dysuria and Denies urinary urgency Musc Denies deformity, Reports arthralgias (Fingers and wrist), Denies joint swelling and Denies limited range of motion Neuro Denies dizziness, Denies headache(s) and Denies weakness Psych Reports as per HPI Endo Denies fatigue, Denies polydipsia, Denies polyuria and Denies palpitations Bandar/Lymph Reports no additional complaints Aller/Immun Reports no additional complaints Physical exam (Primary Care) Vital Signs: Last Vital Signs Pulse 74 02/13/24 11:28 BP 110/60 02/13/24 11:28 Pulse Ox 99 02/13/24 11:28 Oxygen Delivery Method Room Air 02/13/24 11:28 BMI result Body Mass Index 26.4 Tobacco/Smoking Status: Tobacco use Status Tobacco use date assessed 02/13/24 02/13/24 11:21 Patient Tobacco Use Status Former Tobacco user 02/13/24 11:21 e-Cigarette/Vaping Use Never Used 02/13/24 11:21 PHQ-9: PHQ-9 Score PHQ-9: Total score 3 02/13/24 12:16 Depression Screening Interpretation: Positive (Patient still grieving the loss of her , recently disease, does not want to start any medications, has good family so) Thrive Assessment: Date of Thrive Assessment Date Thrive assessed 02/13/24 02/13/24 12:16 Const General: no acute distress and alert Orientation/consciousness: patient oriented x3 HENMT Head: Yes normocephalic Ears: hearing grossly normal bilaterally, external ears normal, TM's normal bilaterally and EAC's normal General nose exam: Normal external nose present and No nasal discharge present Face and sinus: Yes face symmetric Mouth: Normal oral and palatal mucosa present, tongue normal, oropharynx normal and moist mucous membranes Eyes General: appearance normal, both eyes and all related structures Neck Other: Supple, no lymphadenopathy, thyroid gland nonpalpable and nontender to palpation Resp Effort & Inspection: normal respiratory effort and able to speak in complete sentences Auscultation: clear to auscultation bilaterally Cardio Other: S1-S2 present regular rate and rhythm GI Palpation (GI): Soft to palpation, nontender, no guarding and no masses Auscultation: normal bowel sounds Back/Spine/Pelvis Back: No back tenderness Neuro General: patient oriented x3, gait normal, tone normal, moves all extremities, Normal light touch and pain sensation, no focal motor deficits and CN's II-XI intact bilaterally Cognition (Neuro): normal cognition Gait exam (Neuro): Normal gait present Extrem General: Yes full ROM, Yes no joint enlargement, Yes no clubbing, cyanosis or edema, Yes no calf tenderness and Yes normal gait Psych Appearance: grossly normal and well kempt Mental Status: mental status grossly normal Speech and movement: Normal speech and movement present and Clear speech present Affect: normal affect Attitude: cooperative Thought process: Normal thought process present Results Reviewed Results Reviewed: Name: Vikki Phillips Age/Sex: 83/F : 1940 Unit#: [id number] Attend Dr: Elizabet Skinner MD Re02/14/24 Status: DEP REF Location: [facility] Disch: SPEC : [id number] GABRIELA: 02/14/24 STATUS: COMP REQ : [id number] RECD: 02/14/24-[address]: Elizabet Skinner MD COMP: 02/14/246 ENTERED: 02/14/[address]: ORDERED: Lipid Panel, Free T4 Test Result Flag Reference Triglyceride 84 <150 mg/dL Desirable Triglyceride: less than 150 mg/dL Borderline High Triglyceride 150-199 mg/dL High Triglyceride: 200-499 mg/dL Very High Triglyceride: greater than or equal to 5OO mg/dL Cholesterol 183 <200 mg/dL Desirable Cholesterol: less than 200 mg/dL Borderline High Cholesterol: 200-239 mg/dL High Cholesterol: greater than 239 mg/dL LDL Calculated 103 H <100 mg/dL Desirable LDL: less than 100 mg/dL Near Optimal/Above Optimal LDL: 110-129 mg/dL Borderline High LDL: 130-159 mg/dL High LDL: 160-189 mg/dL Very High LDL: greater than or equal to 190 mg/dL HDL 64 >40 mg/dL Desirable HDL: greater than 40 mg/dL Note: This HDL assay may give artificially low results in patients with liver disease. Free T4 1.16 0.71-1.85 ng/dL Assessment and Plan Assessment & Plan (1) Dyslipidemia: Code(s): E78.5 - Hyperlipidemia, unspecified Plan: Reviewed recent fasting lipid profile with patient with levels within normal limits . Continue ezetimibe 10 mg daily , in addition to adherence to low-cholesterol diet and regular exercise, at least 30 minutes 3 to 4 times a week. Advised patient to make healthy food choices, eat more fruits, vegetables, whole grains, wild caught fish and low-fat dairy. Limit amount of meat and fried or fatty food products, as well as processed foods and fast foods. (2) Acquired hypothyroidism: Code(s): E03.9 - Hypothyroidism, unspecified Plan: Thyroid levels are within normal limit, continue current dose of levothyroxine at 50 mcg taken once a day in a.m. (3) Depression: Code(s): F32.A - Depression, unspecified Qualifiers: Depression Type: reactive depression Qualified Code(s): F32.9 - Major depressive disorder, single episode, unspecified Plan: Patient declines referral for counseling or see Psychiatry does not want to start any medications at present time, patient states that she does have a lot of family supporting her after the loss of her Orders: Orders Lipid Panel 02/14/24 E03.9 - Hypothyroidism, unspecified, E78.5 - Hyperlipidemia, unspecified Free T4 (Free Thyroxine) 02/14/24 E03.9 - Hypothyroidism, unspecified, E78.5 - Hyperlipidemia, unspecified Medications: New omeprazole 20 mg PO DAILY PRN 30 caps 1RF heartburn Coding Level of Care Code Est Pt Level 4 (26989) Diagnoses Dyslipidemia E78.5 Acquired hypothyroidism E03.9 Reactive depression F32.9 Depression Type: reactive depression Additional Codes CHRISTIANO-7 Assessment Billing - CHRISTIANO-7 Assessment Tool: CHRISTIANO-7 Assessment [id number] ([id number])
[2024-02-13 11:28] VITALS: BP 110/60; PULSE 74; O2SAT 99; BMI 26.4
== END 2024-02-13 12:10 | disposition home or self-care (01) ==
PROVIDERS: PCP Internal Medicine; Visit Provider Internal Medicine
DX: E78.5 Hyperlipidemia, unspecified (principal); E03.9 Hypothyroidism, unspecified; F32.9 Major depressive disorder, single episode, unspecified
CPT/HCPCS: 99214

== ENCOUNTER 2024-02-14 08:14 | Outpatient (REF) | payer MEDICARE, SELFPAY ==
[2024-02-14 10:55] LABS: Cholesterol 183 mg/dL (<200); HDL Cholesterol 64 mg/dL (>40); LDL Cholesterol Calculated 103 mg/dL (<100); Triglycerides 84 mg/dL (<150)
[2024-02-14 11:26] LABS: Free T4 (Free Thyroxine) 1.16 ng/dL (0.71-1.85)
== END 2024-02-14 08:15 | disposition home or self-care (01) ==
LOC: HO.HMGCLDS 08:14
PROVIDERS: PCP Internal Medicine; Visit Provider Internal Medicine
DX: E03.9 Hypothyroidism, unspecified (principal); E78.5 Hyperlipidemia, unspecified
CPT/HCPCS: 36415; 80061; 84439

== ENCOUNTER 2024-05-06 08:15 | Outpatient (AMB) | payer MEDICARE, SELFPAY ==
[2024-05-06 08:18] VITALS: BP 94/60; PULSE 89; O2SAT 96; BMI 25.8
--- NOTE | 2024-05-06 08:18 | A.OFFVIS_ITS ---
Intake Vital Signs 05/06/24 08:18 Height 5 ft Weight 132 lb BMI 25.8 BP 94/60 Blood Pressure Location Lt brachial Position Sitting Pulse 89 Pulse Source Pulse Oximeter Pulse Oximetry (%) 96 Oxygen Delivery Method Room Air Intake Visit Reasons: SWV Intake Note: Pt is here today for her SWV Allergies From [facility] Allergy (Severe, Uncoded 05/06/24 08:20) HIVES HPI SWV HPI Details SWV ? 83 year old lady with history COPD, osteopenia lumbar spine, acquired hypothyroidism, hyperlipidemia, osteoarthritis, presents for her ? Annual Wellness Visit, initial visit.? She is up-to-date with her screening mammogram done 09/22/2023 with normal findings, no longer gets cervical cancer screening and pelvic exam were screening colonoscopy. Has not had a bone density for several years now, does not want to get testing done anymore. She had a normal fasting lipid panel done 02/14/2024 and fasting blood sugar done 08 10 2023 also showed normal fasting glucose. She is up-to-date with her COVID vaccination and Shingrix vaccine as well as her pneumonia vaccine, gets yearly flu shot ? Medical / Social History Reviewed? Past Medical History ?Yes . ? [place] of Care / Care Team list updated ?Yes . ? Surgical/Hospitalization History ?Yes . ? Current Medications (including OTC and supplements) ?Yes . ? Family History ?Yes . ? Tobacco Control form ?Yes . ? AUDIT-C (Alcohol use) form ?Yes . ? Illicit drug use in Social History ?Yes . ? Current diagnosis of depression? ?No ? Appropriate PHQ2/PHQ9 completed ?Yes . ? Data entered by ?Judicial Assistant and reviewed by provider ? Fall Risk ? Fall History? Have you had any falls with injury in the past year? ?No . ? Have you had two or more falls in the past year? ?No . ? Fall Risk Assessment: ?No falls in the past year . ? HRA filled out by the patient, reviewed by Provider and scanned. ?SWV ? Balance? Romberg ?negative . ? Tandem walk ?Yes . ? Walk and Turn ?Yes . ? Rise from sit to stand ?Yes . ?Vision? Corrective lens ?Yes ? Vision screen ? Up-to-date, she goes to [facility], last appointment was 03/2024 ?Hearing? Whisper test ?pass . ?Written Plan?Completed. See Patient Documents.? PFSH Medical History Anxious depression Vitamin D deficiency Hiatal hernia COPD (chronic obstructive pulmonary disease) Osteopenia of lumbar spine Acquired hypothyroidism Dyslipidemia Osteoarthritis Carpal tunnel syndrome on both sides Hx of gallstones Surgical History Hx laparoscopic cholecystectomy History of partial hysterectomy Hx of appendectomy Family History Mother CVA (cerebral vascular accident) Acquired hypothyroidism Atrial fibrillation Father CVA (cerebral vascular accident) Diabetes mellitus Brother Diabetes mellitus Social History Housing: House Patient Tobacco Use Status: Former Tobacco user e-Cigarette/Vaping Use: Never Used Current occupational status: retired Cognitive needs: No Hearing needs: No Vision needs: Yes Questionnaire Medicare Wellness Checkup What is your age?: 80 or older What gender do you identify with?: female During the past 4 weeks, how much have you been bothered by emotional problems such as feeling anxious, depressed, irritable, sad or downhearted, and blue?: slightly During the past 4 weeks, has your physical & emotional health limited your social activities with family, friends, neighbors, or groups?: slightly During the past 4 weeks, how much bodily pain have you generally had?: mild pain During the past 4 weeks, was someone available to help you if you needed & wanted help?: yes, as much as I wanted During the past 4 weeks, what was the hardest physical activity you could do for at least 2 minutes?: light Can you get to places out of walking distance without help? (For eg., can you travel alone on buses, taxis or drive your car?): Yes Can you go shopping for groceries or clothes without someone's help?: Yes Can you prepare your own meals?: Yes Can you do your housework without help?: Yes Because of any health problems, do you need the help of another person with your personal care needs such as eating, bathing, dressing or getting around the house?: No Can you handle your own money without help?: Yes During the past 4 weeks, how would you rate your health in general?: good During the past 4 weeks how have things been going for you?: pretty well Are you having difficulties driving your car?: no Do you always fasten your seat belt when you are in a car?: yes, usually During past 4 weeks, have you been bothered by the following: never: Sexual problems? and Problems using the telephone?, seldom: Teeth or denture problems? and sometimes: Falling or dizzy when standing up, Trouble eating well? and Tiredness or fatigue? Have you fallen 2 or more times in the past year?: No Are you afraid of falling?: Yes Are you a smoker?: yes, and I might quit During the past 4 weeks, how many drinks of wine, beer, or other alcoholic beverages did you have?: 1 drink or less per week Do you exercise for about 20 minutes 3 or more times a week?: no, I usually do not exercise this much Have you been given information to help with the following?: yes: Hazards in your house that might hurt you? and yes: Keeping track of your medications? How often do you have trouble taking medicines the way you have been told to take them?: I always take medicine as prescribed How confident are you that you can control & manage most of your health problems?: somewhat confident What is your race?: White Mini Mental State Exam (MMSE) Orientation What is the (year) (season) (date) (day) (month)?: year (2023), season (Summer), date (05/06/2024), day (Monday) and month (April) Where are we (state) (county) (town or city) (hospital) (floor)?: state ([place]), county ([place]), town or city ([place]) and hospital/clinic ([facility]) Score Score: 9 Activity of Daily Living Bathing - sponge bath, tub bath or shower: receives no assistance (gets in/out by self, if usual bathing means Dressing - getting clothes from closets & drawers, including inner/outer garments & fasteners.: gets clothes & gets completely dressed without help Toileting - going to the 'toilet room' for urine/bowel elimination & cleaning self/arranging clothes: goes to toilet room, cleans self, arranges clothes without help Transfer: moves in & out of bed and chair without help (may use support object) Continence: has occasional 'accidents' Feeding: feeds self without help Total Score: 0 Information obtained from: patient Using telephone: independent Traveling: independent Shopping: independent Preparing meals: independent Housework: independent Taking medicine: independent Managing money: independent PHQ-9 Over the last 2 weeks, how often have you been bothered by any of the following problems? 1. Little interest or pleasure in doing things: several days 2. Feeling down, depressed, or hopeless: not at all 3. Trouble falling or staying asleep, or sleeping too much: not at all 4. Feeling tired or having little energy: several days 5. Poor appetite or overeating: not at all 6. Feeling bad about yourself - or that you are a failure or have let yourself or your family down: not at all 7. Trouble concentrating on things, such as reading the newspaper or watching te levision: not at all 8. Moving or speaking so slowly that other people could have noticed. Or the opposite - being so fidgety or restless that you have been moving around a lot more than usual: not at all 9. Thoughts that you would be better off or of hurting yourself in some way: not at all Total score: 2 Depression Screening Interpretation: Negative Depression Screening Done: Yes 50208 - PHQ-9 Billing: Yes Source: Developed by Drs. Alireza Donovan, Guadalupe Lopez, Sanjeev Mari and colleagues, with an educational keely from [employer]. Physical Exam Vital Signs: Last Vital Signs Pulse 89 05/06/24 08:18 BP 94/60 05/06/24 08:18 Pulse Ox 96 05/06/24 08:18 Oxygen Delivery Method Room Air 05/06/24 08:18 BMI result Body Mass Index 25.8 Immunizations pneumoc 20-hallie conj-dip cr(PF) 0.5 mL IM syringe Performing Provider: Elizabet Skinner MD Performing Location: [facility] Administered by: Maria Esther Grier CMA on 05/06/24 09:09 Dose Route Admin Location Dispensed Lot Number Expiration Date [facility] Methods Time Analyst 0.5 mL IM Left Deltoid 0.5 mL [id number] 06/29/25 4311-5424-29 [employer]/PFIZER VIS Given Date VIS Provided VIS Publication Date 05/06/24 Single Vaccine 21 Eligibility Eligibility Date Funding Source Not [facility] Eligible 05/06/24 Private Assessment & Plan Assessment & Plan (1) Encounter for subsequent annual wellness visit (AWV) in Medicare patient: Code(s): Z00.00 - Encounter for general adult medical examination without abnormal findings Plan: Medical wellness checklist reviewed, discussed with patient and updated. Copy given. Prevnar 20 given today, up-to-date with the rest of her vaccine (2) Acquired hypothyroidism: Code(s): E03.9 - Hypothyroidism, unspecified Plan: Currently on levothyroxine 80 mcg daily (3) Osteopenia of lumbar spine: Comment: last bone density 2020 per pt Code(s): M85.88 - Other specified disorders of bone density and structure, other site Plan: Declined further bone density testing, continue taking calcium and vitamin-D 3 supplement (4) Dyslipidemia: Code(s): E78.5 - Hyperlipidemia, unspecified Plan: Currently on ezetimibe 10 mg daily (5) Osteoarthritis: Code(s): M19.90 - Unspecified osteoarthritis, unspecified site Plan: Takes [id number] Advil PM as needed (6) COPD (chronic obstructive pulmonary disease): Code(s): J44.9 - Chronic obstructive pulmonary disease, unspecified Plan: Currently on Wixela and has as needed albuterol (7) Hiatal hernia: Code(s): K44.9 - Diaphragmatic hernia without obstruction or gangrene Plan: On omeprazole Orders: Orders Pneumococcal 20 Immunization 05/06/24 Z23 - Encounter for immunization Quality Reporting (2019) Depression/Bipolar (159/160/161/177) PHQ-9: Total score: 2 Coding Level of Care Code Medicare Subsequent (G0439) Diagnoses Encounter for subsequent annual wellness visit (AWV) in Medicare patient Z00.00 Acquired hypothyroidism E03.9 Osteopenia of lumbar spine M85.88 Dyslipidemia E78.5 Osteoarthritis M19.90 COPD (chronic obstructive pulmonary disease) J44.9 Hiatal hernia K44.9 CPT Codes Advance Care Planning - Advance Care Planning discussion: On file, no changes ([id number]) Advance Care Planning - Time spent: 1-15 minutes, on File ([id number]) Advance Care Planning Advance Care Planning discussion: On file, no changes Date of discussion: 05/06/24 Who was present: Patient Forms completed: Health Care Proxy and MOLST Time spent: 1-15 minutes, on File Actual minutes spent: 15
== END 2024-05-06 09:54 | disposition home or self-care (01) ==
PROVIDERS: PCP Internal Medicine; Visit Provider Internal Medicine
DX: Z23 Encounter for immunization (principal)
CPT/HCPCS: 1123F; 90471; 90677; G0439

== ENCOUNTER 2024-07-31 11:32 | Outpatient (AMB) | payer MEDICARE, SELFPAY ==
[2024-07-31 11:46] VITALS: BP 106/70; PULSE 83; O2SAT 100; BMI 26.4
--- NOTE | 2024-07-31 11:46 | A.OFFPC_ITS ---
Vital Signs 07/31/24 11:46 Height 5 ft Weight 135 lb BMI 26.4 BP 106/70 Blood Pressure Location Lt brachial Position Sitting Pulse 83 Pulse Source Pulse Oximeter Pulse Oximetry (%) 100 Oxygen Delivery Method Room Air Intake Visit Reasons: 6 month fu Intake Note: Pt is here today for her 6mo. f/u Allergies From [facility] Allergy (Severe, Uncoded 07/31/24 12:08) HIVES Medication List - Last Reconciled 07/31/24 by Elizabet Skinner MD albuterol sulfate 2.5 mg (3 mL) inhalation QID PRN calcium carb,lactat-vitamin D3 200 mg-6.25 mcg (250 unit) 2 tabs PO DAILY ezetimibe 10 mg PO DAILY ibuprofen-diphenhydramine cit 200-38 mg (Advil PM) 1 cap PO BEDTIME levothyroxine 50 mcg PO DAILY [nebulizer supplies including filter, mouth piece and tubing As directed] omeprazole 20 mg PO DAILY PRN Wixela Inhub 250-50 mcg/dose (fluticasone propion-salmeterol) 1 inh inhalation Q12H NS Tobacco use date assessed: 07/31/24 Fall risk assessment: No Falls in past year Last assessed Fall Risk: 07/31/24 Dental Screening Dental Screen Date: 07/31/24 Did you have a dental visit in the last 12 months?: Yes Did you have a dental problem in the last 6 months where you did not have access to dental care?: No Was dental information given to patient?: Patient has dentist HPI 6 month fu HPI Details 84-year-old lady with hypothyroidism, hy perlipidemia and COPD, here today for follow-up. She has been feeling well, last lipids done 02/17/2024 was within normal. Continues to smoke cigarettes at least 3 cigarettes a day, with no desire to quit at present time. COPD has been stable and controlled on Wixela and uses as needed albuterol. Has been feeling well, no complaints, is up-to-date with all her vaccines/ PFSH Medical History Vitamin D deficiency Hiatal hernia COPD (chronic obstructive pulmonary disease) Osteopenia of lumbar spine Acquired hypothyroidism Dyslipidemia Osteoarthritis Carpal tunnel syndrome on both sides Hx of gallstones Surgical History Hx laparoscopic cholecystectomy History of partial hysterectomy Hx of appendectomy Family History Mother CVA (cerebral vascular accident) Acquired hypothyroidism Atrial fibrillation Father CVA (cerebral vascular accident) Diabetes mellitus Brother Diabetes mellitus Social History Housing: House Patient Tobacco Use Status: Current someday Tobacco user e-Cigarette/Vaping Use: Never Used Current occupational status: retired Cognitive needs: No Hearing needs: No Vision needs: Yes Questionnaire PHQ-9 Over the last 2 weeks, how often have you been bothered by any of the following problems? 1. Little interest or pleasure in doing things: not at all 2. Feeling down, depressed, or hopeless: not at all 3. Trouble falling or staying asleep, or sleeping too much: several days 4. Feeling tired or having little energy: not at all 5. Poor appetite or overeating: not at all 6. Feeling bad about yourself - or that you are a failure or have let yourself or your family down: several days 7. Trouble concentrating on things, such as reading the newspaper or watching television: not at all 8. Moving or speaking so slowly that other people could have noticed. Or the opposite - being so fidgety or restless that you have been moving around a lot more than usual: not at all 9. Thoughts that you would be better off or of hurting yourself in some way: not at all Total score: 2 Depression Screening Interpretation: Negative Depression Screening Done: Yes 36081 - PHQ-9 Billing: Yes Source: Developed by Drs. Alireza Donovan, Guadalupe Lopez, Sanjeev Mari and colleagues, with an educational keely from [employer]. Thrive Questionnaire Date Thrive assessed: 07/31/24 I am a: Patient What is your living situation today?: I have a steady place to live Within the past 12 months, did the food you bought not last and you didn't have the money to get more?: Never true Within the past 12 months, did you worry whether your food would run out before you got money to buy more?: Never true Do you have trouble paying for medicines?: No Do you have trouble getting transportation to medical appointments?: No Do you have trouble paying your heating and electricity bill?: No Do you have trouble taking care of your child, family member or friend?: No Do you have trouble with day-to-day activities such as bathing, preparing meals, shopping, managing finances, etc.?: No Are you interested in more education?: No Please select the resources that you would like help with: None Currently or been in a relationship where the following occur: No concerns reported THRIVE Score: 0 AUDIT C Alcohol Use Questionnaire (AUDIT-C) 1. How often do you have a drink containing alcohol?: Monthly or less 2. How many drinks containing alcohol do you have on a typical day when you are drinking?: 1 or 2 3. How often do you have six or more drinks on one occasion?: Never Total Score: 1 CHRISTIANO-7 AMB Questionnaire CHRISTIANO-7 Date CHRISTIANO - 7 assessed: 07/31/24 Feeling nervous, anxious, or on edge: 0 = Not at all Not being able to stop or control worryin = Several days Worrying too much about different things: 1 = Several days Trouble relaxin = Not at all Being so restless that it is hard to sit still: 0 = Not at all Becoming easily annoyed or irritable: 0 = Not at all Feeling afraid as if something awful might happen: 1 = Several days Total CHRISTIANO-7 score (0-4 normal; 5-9 mild; 10-14 moderate; 15-21 severe): 3 Source: Developed by Drs. Alireza Donovan, Guadalupe Lopez, Sanjeev Mari and colleagues, with an educational keely from [employer]. Review of Systems Const Denies fatigue, Denies fever(s), Denies headache(s) and Denies weakness ENT Denies dizziness, Denies headache(s), Denies nasal congestion, Denies nasal discharge and Denies sore throat Card Denies chest pain, Denies lightheadedness, Denies palpitations and Denies dyspnea Resp Denies chest congestion, Denies cough and Denies dyspnea GI Denies abdominal pain, Denies change in bowel habits and Denies heartburn Denies hematuria, Denies urinary frequency, Denies dysuria and Denies urinary urgency Musc Denies deformity, Reports arthralgias (Fingers and wrist), Denies joint swelling and Denies limited range of motion Neuro Denies dizziness, Denies headache(s) and Denies weakness Psych Reports as per HPI Endo Denies fatigue, Denies polydipsia, Denies polyuria and Denies palpitations Bandar/Lymph Reports no additional complaints Aller/Immun Reports no additional complaints Physical exam (Primary Care) Vital Signs: Last Vital Signs Pulse 83 07/31/24 11:46 BP 106/70 07/31/24 11:46 Pulse Ox 100 07/31/24 11:46 Oxygen Delivery Method Room Air 07/31/24 11:46 BMI result Body Mass Index 26.4 Tobacco/Smoking Status: Tobacco use Status Tobacco use date assessed 07/31/24 07/31/24 11:52 Patient Tobacco Use Status Current someday Tobacco 07/31/24 11:52 e-Cigarette/Vaping Use Never Used 07/31/24 11:52 PHQ-9: PHQ-9 Score PHQ-9: Total score 2 07/31/24 12:12 Depression Screening Interpretation: Negative Thrive Assessment: Date of Thrive Assessment Date Thrive assessed 07/31/24 07/31/24 11:52 Currently or been in a relationship where the following occur: No concerns reported Const General: no acute distress and alert Orientation/consciousness: patient oriented x3 HENMT Head: Yes normocephalic Ears: hearing grossly normal bilaterally, external ears normal, TM's normal bilaterally and EAC's normal General nose exam: Normal external nose present and No nasal discharge present Face and sinus: Yes face symmetric Mouth: Normal oral and palatal mucosa present, tongue normal, oropharynx normal and moist mucous membranes Eyes General: appearance normal, both eyes and all related structures Neck Other: Supple, no lymphadenopathy, thyroid gland nonpalpable and nontender to palpation Resp Effort & Inspection: normal respiratory effort and able to speak in complete sentences Auscultation: clear to auscultation bilaterally Cardio Other: S1-S2 present regular rate and rhythm GI Palpation (GI): Soft to palpation, nontender, no guarding and no masses Auscultation: normal bowel sounds Back/Spine/Pelvis Back: No back tenderness Neuro General: patient oriented x3, gait normal, tone normal, moves all extremities, Normal light touch and pain sensation, no focal motor deficits and CN's II-XI intact bilaterally Cognition (Neuro): normal cognition Gait exam (Neuro): Normal gait present Extrem General: Yes full ROM, Yes no joint enlargement, Yes no clubbing, cyanosis or edema, Yes no calf tenderness and Yes normal gait Psych Appearance: grossly normal and well kempt Mental Status: mental status grossly normal Speech and movement: Normal speech and movement present and Clear speech present Affect: normal affect Attitude: cooperative Thought process: Normal thought process present Results Reviewed Results Reviewed: Name: Vikki Phillips Age/Sex: 83/F : 1940 Unit#: [id number] Attend Dr: Elizabet Skinner MD Re02/14/24 Status: DEP REF Location: [facility] Disch: SPEC : [id number] GABRIELA: 02/14/24 STATUS: COMP REQ : [id number] RECD: 02/14/24-[address]: Elizabet Skinner MD COMP: 02/14/24 ENTERED: 02/14/24-[address]: ORDERED: Lipid Panel, Free T4 Test Result Flag Reference Triglyceride 84 <150 mg/dL Desirable Triglyceride: less than 150 mg/dL Borderline High Triglyceride 150-199 mg/dL High Triglyceride: 200-499 mg/dL Very High Triglyceride: greater than or equal to 5OO mg/dL Cholesterol 183 <200 mg/dL Desirable Cholesterol: less than 200 mg/dL Borderline High Cholesterol: 200-239 mg/dL High Cholesterol: greater than 239 mg/dL LDL Calculated 103 H <100 mg/dL Desirable LDL: less than 100 mg/dL Near Optimal/Above Optimal LDL: 110-129 mg/dL Borderline High LDL: 130-159 mg/dL High LDL: 160-189 mg/dL Very High LDL: greater than or equal to 190 mg/dL HDL 64 >40 mg/dL Desirable HDL: greater than 40 mg/dL Note: This HDL assay may give artificially low results in patients with liver disease. Free T4 1.16 0.71-1.85 ng/dL Coding Level of Care Code Est Pt Level 4 (60306) Complex EM visit Add On G2211 Diagnoses Acquired hypothyroidism E03.9 COPD (chronic obstructive pulmonary disease) J44.9 Dyslipidemia E78.5 Assessment & Plan Assessment & Plan (1) Acquired hypothyroidism: Code(s): E03.9 - Hypothyroidism, unspecified Category: Medical Plan: Currently on levothyroxine 50 mcg daily, will repeat another TSH and free T4 in six-month (2) COPD (chronic obstructive pulmonary disease): Code(s): J44.9 - Chronic obstructive pulmonary disease, unspecified Category: Medical Plan: Breathing stable controlled on Wixela and albuterol inhaler as needed. Has decreased to just once a day at night dosing for tele. (3) Dyslipidemia: Code(s): E78.5 - Hyperlipidemia, unspecified Category: Medical Plan: Reviewed recent fasting lipid profile with patient with levels within normal . Continue ezetimibe 10 mg daily , in addition to adherence to low- cholesterol diet and regular exercise, at least 30 minutes 3 to 4 times a week. Advised patient to make healthy food choices, eat more fruits, vegetables, whole grains, wild caught fish and low-fat dairy. Limit amount of meat and fried or fatty food products, as well as processed foods and fast foods. Follow-up scheduled with repeat fasting lipid panel in 6 months. Up-to-date with all her vaccines Orders: Orders Free T4 (Free Thyroxine) 02/15/25 E03.9 - Hypothyroidism, unspecified, E78.5 - Hyperlipidemia, unspecified, J44.9 - Chronic obstructive pulmonary disease, unspecified, M85.88 - Other specified disorders of bone density and structure, other site Lipid Panel 02/15/25 E03.9 - Hypothyroidism, unspecified, E78.5 - Hyperlipidemia, unspecified, J44.9 - Chronic obstructive pulmonary disease, unspecified, M85.88 - Other specified disorders of bone density and structure, other site Vitamin D 25-OH Total 02/15/25 E03.9 - Hypothyroidism, unspecified, E78.5 - Hyperlipidemia, unspecified, J44.9 - Chronic obstructive pulmonary disease, unspecified, M85.88 - Other specified disorders of bone density and structure, other site Thyroid Stimulating Hormone 02/15/25 E03.9 - Hypothyroidism, unspecified, E78.5 - Hyperlipidemia, unspecified, J44.9 - Chronic obstructive pulmonary disease, unspecified, M85.88 - Other specified disorders of bone density and structure, other site Alanine Aminotransferase 02/15/25 E03.9 - Hypothyroidism, unspecified, E78.5 - Hyperlipidemia, unspecified, J44.9 - Chronic obstructive pulmonary disease, unspecified, M85.88 - Other specified disorders of bone density and structure, other site Aspartate Amino Transferase 02/15/25 E03.9 - Hypothyroidism, unspecified, E78.5 - Hyperlipidemia, unspecified, J44.9 - Chronic obstructive pulmonary disease, unspecified, M85.88 - Other specified disorders of bone density and structure, other site Medications: Refilled ezetimibe 10 mg PO DAILY 30 tabs 6RF
== END 2024-07-31 14:18 | disposition home or self-care (01) ==
PROVIDERS: PCP Internal Medicine; Visit Provider Internal Medicine
DX: E03.9 Hypothyroidism, unspecified (principal); J44.9 Chronic obstructive pulmonary disease, unspecified; E78.5 Hyperlipidemia, unspecified

== ENCOUNTER → 2024-07-31 11:32 | Outpatient (BNVA) | payer MEDICARE, SELFPAY | PROVIDERS: PCP Internal Medicine; Visit Provider Internal Medicine | DX: E03.9 Hypothyroidism, unspecified (principal); J44.9 Chronic obstructive pulmonary disease, unspecified; E78.5 Hyperlipidemia, unspecified | CPT/HCPCS: 96127; 99212 ==

== ENCOUNTER 2025-01-29 07:59 | Outpatient (REF) | payer MEDICARE, SELFPAY ==
[2025-01-29 11:26] LABS: Alanine Aminotransferase 11 U/L (0-31); Aspartate Amino Transferase 19 U/L (5-31); Cholesterol 173 mg/dL (<200); HDL Cholesterol 66 mg/dL (>40); LDL Cholesterol Calculated 90 mg/dL (<100); Triglycerides 86 mg/dL (<150)
[2025-01-29 11:46] LABS: Free T4 (Free Thyroxine) 1.15 ng/dL (0.71-1.85); Thyroid Stimulating Hormone 1.75 uIU/mL (0.32-4.0); Vitamin D 25-OH Total 53.3 ng/mL (>30)
== END 2025-01-29 08:00 | disposition home or self-care (01) ==
LOC: HO.HMGCLDS 07:59
PROVIDERS: PCP Internal Medicine; Visit Provider Internal Medicine
DX: J44.9 Chronic obstructive pulmonary disease, unspecified (principal); M85.88 Other specified disorders of bone density and structure, other site; E03.9 Hypothyroidism, unspecified; E78.5 Hyperlipidemia, unspecified
CPT/HCPCS: 36415; 80061; 82306; 84439; 84443; 84450; 84460

== ENCOUNTER 2025-02-03 11:17 | Outpatient (AMB) | payer MEDICARE, SELFPAY ==
--- NOTE | 2025-02-03 11:33 | A.OFFPC_ITS ---
Vital Signs 02/03/25 11:37 Height 5 ft Weight 130 lb BMI 25.4 BP 108/60 Blood Pressure Location Lt brachial Position Sitting Respiration 16 Pulse 74 Pulse Source Pulse Oximeter Temp 97.7 F Temp Source Oral Pulse Oximetry (%) 100 Oxygen Delivery Method Room Air Intake Visit Reasons: 6 Month follow up Intake Note: Pt is here today for her 6mo. f/u Allergies From [facility] Allergy (Severe, Uncoded 02/10/25 00:54) HIVES Medication List - Last Reconciled 02/10/25 by Elizabet Skinner MD albuterol sulfate 2.5 mg (3 mL) inhalation QID PRN calcium carb,lactat-vitamin D3 200 mg-6.25 mcg (250 unit) 2 tabs PO DAILY ezetimibe 10 mg PO DAILY ibuprofen-diphenhydramine cit 200-38 mg (Advil PM) 1 cap PO BEDTIME levothyroxine 50 mcg PO DAILY [nebulizer supplies including filter, mouth piece and tubing As directed] omeprazole 20 mg PO DAILY PRN Wixela Inhub 250-50 mcg/dose (fluticasone propion-salmeterol) 1 inh inhalation Q12H NS Tobacco use date assessed: 02/03/25 Fall risk assessment: No Falls in past year Last assessed Fall Risk: 02/03/25 Dental Screening Dental Screen Date: 02/03/25 Did you have a dental visit in the last 12 months?: Yes Did you have a dental problem in the last 6 months where you did not have access to dental care?: No Was dental information given to patient?: Patient has dentist HPI 6 Month follow up HPI Details 84-year-old lady with history of hyperte nsion, COPD, osteopenia of lumbar spine, acquired hypothyroidism and dyslipidemia, here today for her follow-up. She has been taking her medicines as directed, compliant with adherence to healthy eating habits, has been feeling well, with no complaints at present time. Continues to smoke cigarettes at least 1 or 2 cigarettes every now and then, no desire to quit. Recent fasting labs showed normal lipids, thyroid levels and vitamin-D levels. [facility] Medical History Vitamin D deficiency Hiatal hernia COPD (chronic obstructive pulmonary disease) Osteopenia of lumbar spine Acquired hypothyroidism Dyslipidemia Osteoarthritis Carpal tunnel syndrome on both sides Hx of gallstones Surgical History Hx laparoscopic cholecystectomy History of partial hysterectomy Hx of appendectomy Family History Mother CVA (cerebral vascular accident) Acquired hypothyroidism Atrial fibrillation Father CVA (cerebral vascular accident) Diabetes mellitus Brother Diabetes mellitus Social History Housing: House Patient Tobacco Use Status: Current someday Tobacco user e-Cigarette/Vaping Use: Never Used Current occupational status: retired Cognitive needs: No Hearing needs: No Vision needs: Yes Questionnaire PHQ-9 Over the last 2 weeks, how often have you been bothered by any of the following problems? 1. Little interest or pleasure in doing things: not at all 2. Feeling down, depressed, or hopeless: not at all 3. Trouble falling or staying asleep, or sleeping too much: not at all 4. Feeling tired or having little energy: several days 5. Poor appetite or overeating: not at all 6. Feeling bad about yourself - or that you are a failure or have let yourself or your family down: not at all 7. Trouble concentrating on things, such as reading the newspaper or watching television: not at all 8. Moving or speaking so slowly that other people could have noticed. Or the opposite - being so fidgety or restless that you have been moving around a lot more than usual: not at all 9. Thoughts that you would be better off or of hurting yourself in some way: not at all Total score: 1 Depression Screening Interpretation: Negative Depression Screening Done: Yes 43802 - PHQ-9 Billing: Yes Source: Developed by Drs. Alireza Donovan, Guadalupe Lopez, Sanjeev Mari and colleagues, with an educational keely from [employer]. Thrive Questionnaire Date Thrive assessed: 02/03/25 I am a: Patient What is your living situation today?: I have a steady place to live Within the past 12 months, did the food you bought not last and you didn't have the money to get more?: Never true Within the past 12 months, did you worry whether your food would run out before you got money to buy more?: Never true Do you have trouble paying for medicines?: No Do you have trouble getting transportation to medical appointments?: No Do you have trouble paying your heating and electricity bill?: No Do you have trouble taking care of your child, family member or friend?: No Do you have trouble with day-to-day activities such as bathing, preparing meals, shopping, managing finances, etc.?: No Are you currently unemployed and looking for a job?: No Are you interested in more education?: No Please select the resources that you would like help with: None Currently or been in a relationship where the following occur: No concerns reported THRIVE Score: 0 AUDIT C Alcohol Use Questionnaire (AUDIT-C) 1. How often do you have a drink containing alcohol?: Monthly or less 2. How many drinks containing alcohol do you have on a typical day when you are drinking?: 1 or 2 3. How often do you have six or more drinks on one occasion?: Never Total Score: 1 CHRISTIANO-7 AMB Questionnaire CHRISTIANO-7 Date CHRISTIANO - 7 assessed: 02/03/25 Feeling nervous, anxious, or on edge: 0 = Not at all Not being able to stop or control worryin = Not at all Worrying too much about different things: 0 = Not at all Trouble relaxin = Not at all Being so restless that it is hard to sit still: 0 = Not at all Becoming easily annoyed or irritable: 0 = Not at all Feeling afraid as if something awful might happen: 0 = Not at all Total CHRISTIANO-7 score (0-4 normal; 5-9 mild; 10-14 moderate; 15-21 severe): 0 Source: Developed by Drs. Alireza Donovan, Guadalupe Lopez, Sanjeev Mari and colleagues, with an educational keely from [employer]. CHRISTIANO-7 Assessment Billing CHRISTIANO-7 Assessment Tool: CHRISTIANO-7 Assessment 37770 Review of Systems Const Denies fatigue, Denies fever(s), Denies headache(s) and Denies weakness Eyes Denies change in vision ENT Denies dizziness, Denies headache(s) and Denies nasal congestion Card Denies chest pain, Denies lightheadedness, Denies palpitations and Denies dyspnea Resp Denies chest congestion, Denies cough and Denies dyspnea GI Denies abdominal pain, Denies change in bowel habits and Denies heartburn Denies hematuria, Denies urinary frequency, Denies dysuria and Denies urinary urgency Musc Denies deformity, Reports arthralgias (Fingers and wrist), Denies joint swelling and Denies limited range of motion Neuro Denies dizziness, Denies headache(s) and Denies weakness Psych Reports as per HPI Endo Denies fatigue, Denies polydipsia, Denies polyuria and Denies palpitations Bandar/Lymph Reports no additional complaints Aller/Immun Reports no additional complaints Physical exam (Primary Care) Vital Signs: Last Vital Signs Temp 97.7 F 02/03/25 11:37 Pulse 74 02/03/25 11:37 Resp 16 02/03/25 11:37 BP 108/60 02/03/25 11:37 Pulse Ox 100 02/03/25 11:37 Oxygen Delivery Method Room Air 02/03/25 11:37 BMI result Body Mass Index 25.4 Tobacco/Smoking Status: Tobacco use Status Tobacco use date assessed 02/03/25 02/03/25 11:35 Patient Tobacco Use Status Current someday Tobacco 02/03/25 11:35 e-Cigarette/Vaping Use Never Used 02/03/25 11:35 PHQ-9: PHQ-9 Score PHQ-9: Total score 1 02/03/25 11:50 Depression Screening Interpretation: Negative Thrive Assessment: Date of Thrive Assessment Date Thrive assessed 02/03/25 02/03/25 11:35 Currently or been in a relationship where the following occur: No concerns reported Const General: no acute distress and alert Orientation/consciousness: patient oriented x3 HENMT Head: Yes normocephalic Ears: hearing grossly normal bilaterally and external ears normal General nose exam: Normal external nose present Face and sinus: Yes face symmetric Mouth: Normal oral and palatal mucosa present, oropharynx normal and moist mucous membranes Eyes General: appearance normal, both eyes and all related structures Neck Other: Supple, no lymphadenopathy, thyroid gland nonpalpable and nontender to palpation Resp Effort & Inspection: normal respiratory effort and able to speak in complete sentences Auscultation: clear to auscultation bilaterally Cardio Other: S1-S2 present regular rate and rhythm GI Palpation (GI): Soft to palpation, nontender, no guarding and no masses Auscultation: normal bowel sounds Back/Spine/Pelvis Back: No back tenderness Neuro General: patient oriented x3, gait normal, tone normal, moves all extremities and no focal motor deficits Cognition (Neuro): normal cognition Extrem General: Yes full ROM, Yes no joint enlargement, Yes no clubbing, cyanosis or edema, Yes no calf tenderness and Yes normal gait Psych Appearance: grossly normal and well kempt Mental Status: mental status grossly normal Speech and movement: Normal speech and movement present Affect: normal affect Thought process: Normal thought process present Results Reviewed Results Reviewed: Name: Vikki Phillips Age/Sex: 84/F : 1940 Unit#: [id number] Attend Dr: Elizabet Skinner MD Re01/29/25 Status: DEP REF Location: [facility] Disch: SPEC : [id number] GABRIELA: 01/29/25 STATUS: COMP REQ : [id number] RECD: 01/29/[address]: Elizabet Skinner MD COMP: 01/29/25 ENTERED: 01/29/[address]: ORDERED: AST, ALT, Lipid Panel, Vitamin D 25-OH, Free T4, TSH Test Result Flag Reference AST (GOT) 19 5-31 U/L ALT (GPT) 11 0-31 U/L Triglyceride 86 <150 mg/dL Desirable Triglyceride: less than 150 mg/dL Borderline High Triglyceride 150-199 mg/dL High Triglyceride: 200-499 mg/dL Very High Triglyceride: greater than or equal to 5OO mg/dL Cholesterol 173 <200 mg/dL Desirable Cholesterol: less than 200 mg/dL Borderline High Cholesterol: 200-239 mg/dL High Cholesterol: greater than 239 mg/dL LDL Calculated 90 <100 mg/dL Desirable LDL: less than 100 mg/dL Near Optimal/Above Optimal LDL: 110-129 mg/dL Borderline High LDL: 130-159 mg/dL High LDL: 160-189 mg/dL Very High LDL: greater than or equal to 190 mg/dL HDL 66 >40 mg/dL Desirable HDL: greater than 40 mg/dL Note: This HDL assay may give artificially low results in patients with liver disease. Vitamin D 25-OH 53.3 >30 ng/mL Health Based Reference Values* < 20 ng/mL Deficient 20-30 ng/mL Insufficient > 30 ng/mL Sufficient *Amaris MILLER. N Engl J Med. 2007;[id number]:266-280 There is no well-established upper level of normal vitamin D levels. Some laboratories use 50 ng/mL as an upper limit of normal. However, toxicity is patient-dependent and may occur at any level. Careful correlation with the patient's presentation is necessary and, if there is concern for vitamin D toxicity, treatment should be considered irrespective of the serum level. Care must be taken in interpreting Vitamin D results from different laboratories and methodologies. Published data demonstrated that results from patients undergoing hemodialysis may show a negative bias when tested with various automated 25-OH vitamin D assays when compared to LC-MS/MS. When testing samples from patients whose predominant form of Vitamin D is Vitamin D2, such as patients receiving Vitamin D2 supplementation, results that are subtherapeutic should be confirmed with another method such as LC-MS/MS. Free T4 1.15 0.71-1.85 ng/dL TSH 3rd Gen. 1.75 0.32-4.0 uIU/mL TSH 3rd Generation ([facility]) Coding Level of Care Code Est Pt Level 4 (06403) Complex EM visit Add On G2211 Diagnoses Dyslipidemia E78.5 Acquired hypothyroidism E03.9 Osteopenia of lumbar spine M85.88 COPD (chronic obstructive pulmonary disease) J44.9 Additional Codes CHRISTIANO-7 Assessment Billing - CHRISTIANO-7 Assessment Tool: CHRISTIANO-7 Assessment 70159 ([id number]) PHQ-9 - 34013 - PHQ-9 Billing: Yes ([id number]) Assessment & Plan Assessment & Plan (1) Dyslipidemia: Code(s): E78.5 - Hyperlipidemia, unspecified Category: Medical Plan: Continue ezetimibe 10 mg daily in addition to adherence to healthy eating habits and regular exercise (2) Acquired hypothyroidism: Code(s): E03.9 - Hypothyroidism, unspecified Category: Medical Plan: Latest thyroid levels are within normal limits, continued levothyroxine 50 mcg daily in a.m. before breakfast (3) Osteopenia of lumbar spine: Comment: last bone density 2020 per pt Code(s): M85.88 - Other specified disorders of bone density and structure, other site Category: Medical Plan: Forced importance of taking vitamin-D 3 supplements continue calcium supplements, encouraged to do regular weight-bearing exercise to preserve bone mass. (4) COPD (chronic obstructive pulmonary disease): Code(s): J44.9 - Chronic obstructive pulmonary disease, unspecified Category: Medical Plan: Continues to smoke cigarettes, but not on a regular basis, no desire to quit at present time continued on Wixela at the same dose, has albuterol inhaler for episodes of bronchospasm and wheezing. Orders: Orders 2 Basic Metabolic Panel Fasting 07/30/25 E03.9 - Hypothyroidism, unspecified, E78.5 - Hyperlipidemia, unspecified, J44.9 - Chronic obstructive pulmonary disease, unspecified, K44.9 - Diaphragmatic hernia without obstruction or gangrene, M85.88 - Other specified disorders of bone density and structure, other site Aspartate Amino Transferase 07/30/25 E03.9 - Hypothyroidism, unspecified, E78.5 - Hyperlipidemia, unspecified, J44.9 - Chronic obstructive pulmonary disease, unspecified, K44.9 - Diaphragmatic hernia without obstruction or gangrene, M85.88 - Other specified disorders of bone density and structure, other site Lipid Panel 07/30/25 E03.9 - Hypothyroidism, unspecified, E78.5 - Hyperlipidemia, unspecified, J44.9 - Chronic obstructive pulmonary disease, unspecified, K44.9 - Diaphragmatic hernia without obstruction or gangrene, M85.88 - Other specified disorders of bone density and structure, other site Vitamin D 25-OH Total 07/30/25 E03.9 - Hypothyroidism, unspecified, E78.5 - Hyperlipidemia, unspecified, J44.9 - Chronic obstructive pulmonary disease, unspecified, K44.9 - Diaphragmatic hernia without obstruction or gangrene, M85.88 - Other specified disorders of bone density and structure, other site Free T4 (Free Thyroxine) 07/30/25 E03.9 - Hypothyroidism, unspecified, E78.5 - Hyperlipidemia, unspecified, J44.9 - Chronic obstructive pulmonary disease, unspecified, K44.9 - Diaphragmatic hernia without obstruction or gangrene, M85.88 - Other specified disorders of bone density and structure, other site Alanine Aminotransferase 07/30/25 E03.9 - Hypothyroidism, unspecified, E78.5 - Hyperlipidemia, unspecified, J44.9 - Chronic obstructive pulmonary disease, unspecified, K44.9 - Diaphragmatic hernia without obstruction or gangrene, M85.88 - Other specified disorders of bone density and structure, other site Complete Blood Count Auto Diff 07/30/25 E03.9 - Hypothyroidism, unspecified, E78.5 - Hyperlipidemia, unspecified, J44.9 - Chronic obstructive pulmonary disease, unspecified, K44.9 - Diaphragmatic hernia without obstruction or gangrene, M85.88 - Other specified disorders of bone density and structure, other site Vitamin B12 and Folate 07/30/25 E03.9 - Hypothyroidism, unspecified, E78.5 - Hyperlipidemia, unspecified, J44.9 - Chronic obstructive pulmonary disease, unspecified, K44.9 - Diaphragmatic hernia without obstruction or gangrene, M85.88 - Other specified disorders of bone density and structure, other site Thyroid Stimulating Hormone 07/30/25 E03.9 - Hypothyroidism, unspecified, E78.5 - Hyperlipidemia, unspecified, J44.9 - Chronic obstructive pulmonary disease, unspecified, K44.9 - Diaphragmatic hernia without obstruction or gangrene, M85.88 - Other specified disorders of bone density and structure, other site Medications: Refilled levothyroxine 50 mcg PO DAILY 90 tabs 4RF
[2025-02-03 11:37] VITALS: BP 108/60; PULSE 74; RESP 16; TEMP 36.5; O2SAT 100; BMI 25.4
== END 2025-02-03 13:27 | disposition home or self-care (01) ==
LOC: HO.HMCC 11:18
PROVIDERS: PCP Internal Medicine; Visit Provider Internal Medicine
DX: E78.5 Hyperlipidemia, unspecified (principal); E03.9 Hypothyroidism, unspecified; M85.88 Other specified disorders of bone density and structure, other site; J44.9 Chronic obstructive pulmonary disease, unspecified

== ENCOUNTER → 2025-02-03 11:17 | Outpatient (BNVA) | payer MEDICARE, SELFPAY | PROVIDERS: PCP Internal Medicine; Visit Provider Internal Medicine | DX: E78.5 Hyperlipidemia, unspecified (principal); E03.9 Hypothyroidism, unspecified; M85.88 Other specified disorders of bone density and structure, other site; J44.9 Chronic obstructive pulmonary disease, unspecified | CPT/HCPCS: 96127; 99212 ==

== ENCOUNTER 2025-05-13 08:22 | Outpatient (AMB) | payer MEDICARE, SELFPAY ==
[2025-05-13 08:28] VITALS: BP 100/60; PULSE 69; RESP 16; TEMP 36.6; O2SAT 99; BMI 25.0
--- NOTE | 2025-05-13 08:29 | AM.OFFVISMDC ---
Intake Vital Signs 05/13/25 08:28 Height 5 ft Weight 128 lb BMI 25.0 BP 100/60 Blood Pressure Location Lt brachial Position Sitting Respiration 16 Pulse 69 Pulse Source Pulse Oximeter Temp 97.8 F Temp Source Oral Pulse Oximetry (%) 99 Oxygen Delivery Method Room Air Intake Visit Reasons: SWV G0439 Intake Note: Pt is here today for her SWV Allergies From LIPITOR Allergy (Severe, Uncoded 02/10/25 00:54) HIVES HPI SWV G0439 HPI Details SWV ? 84 year old lady with history COPD, osteopenia lumbar spine, acquired hypothyroidism, hyperlipidemia, osteoarthritis, presents for her ? Annual Wellness Visit, initial visit.? She is up-to-date with her screening mammogram done 09/22/2023 with normal findings, no longer gets cervical cancer screening and pelvic exam were screening colonoscopy, and also does not want to get any further screening mammograms.. Has not had a bone density for several years now, does not want to get testing done anymore. She had a normal fasting lipid panel done 01/29/25 and fasting blood sugar done 08/10/2023, also showed normal result. She is up-to-date with her COVID, RSV , Shingrix vaccine as well as her pneumonia vaccine, gets yearly flu shot ? Medical / Social History Reviewed? Past Medical History ?Yes . ? [place] of Care / Care Team list updated ?Yes . ? Surgical/Hospitalization History ?Yes . ? Current Medications (including OTC and supplements) ?Yes . ? Family History ?Yes . ? Tobacco Control form ?Yes . ? AUDIT-C (Alcohol use) form ?Yes . ? Illicit drug use in Social History ?Yes . ? Current diagnosis of depression? ?No ? Appropriate PHQ2/PHQ9 completed ?Yes . ? Data entered by ?G[employer] Roofer and reviewed by provider ? Fall Risk ? Fall History? Have you had any falls with injury in the past year? ?No . ? Have you had two or more falls in the past year? ?No . ? Fall Risk Assessment: ?No falls in the past year . ? HRA filled out by the patient, reviewed by Provider and scanned. ?SWV ? Balance? Romberg ?negative . ? Tandem walk ?Yes . ? Walk and Turn ?Yes . ? Rise from sit to stand ?Yes . ?Vision? Corrective lens ?Yes ? Vision screen ? Up-to-date, she goes to [facility] ?Hearing? Whisper test ?fail, but does not want to get hearing test ?Written Plan?Completed. See Patient Documents.? Up-to-date with her MOLST and healthcare proxy HPI Comments History of Present Illness Details 54-year-old lady, with history of hypothyroidism, COPD and dyslipidemia, here today for follow-up. Has been compliant with taking her medications and has been following a healthy diet, stays active, still drives around the neighborhood, lives by herself in her own home. She states that she feels well, no complaints at present time, but needs refills on her ezetimibe and omeprazole. Latest fasting labs showed normal lipids liver enzymes thyroid levels and vitamin-D level. [facility] Medical History Vitamin D deficiency Hiatal hernia COPD (chronic obstructive pulmonary disease) Osteopenia of lumbar spine Acquired hypothyroidism Dyslipidemia Osteoarthritis Carpal tunnel syndrome on both sides Hx of gallstones Surgical History Hx laparoscopic cholecystectomy History of partial hysterectomy Hx of appendectomy Family History Mother CVA (cerebral vascular accident) Acquired hypothyroidism Atrial fibrillation Father CVA (cerebral vascular accident) Diabetes mellitus Brother Diabetes mellitus Social History Housing: House Patient Tobacco Use Status: Current someday Tobacco user e-Cigarette/Vaping Use: Never Used Current occupational status: retired Cognitive needs: No Hearing needs: No Vision needs: Yes Questionnaire Medicare Wellness Checkup What is your age?: 80 or older What gender do you identify with?: female During the past 4 weeks, how much have you been bothered by emotional problems such as feeling anxious, depressed, irritable, sad or downhearted, and blue?: slightly During the past 4 weeks, has your physical & emotional health limited your social activities with family, friends, neighbors, or groups?: slightly During the past 4 weeks, how much bodily pain have you generally had?: very mild pain During the past 4 weeks, was someone available to help you if you needed & wanted help?: yes, as much as I wanted During the past 4 weeks, what was the hardest physical activity you could do for at least 2 minutes?: heavy Can you get to places out of walking distance without help? (For eg., can you travel alone on buses, taxis or drive your car?): Yes Can you go shopping for groceries or clothes without someone's help?: Yes Can you prepare your own meals?: Yes Can you do your housework without help?: Yes Because of any health problems, do you need the help of another person with your personal care needs such as eating, bathing, dressing or getting around the house?: No Can you handle your own money without help?: Yes During the past 4 weeks, how would you rate your health in general?: very good During the past 4 weeks how have things been going for you?: pretty well Are you having difficulties driving your car?: no Do you always fasten your seat belt when you are in a car?: yes, usually During past 4 weeks, have you been bothered by the following: never: Problems using the telephone?, seldom: Trouble eating well? and Teeth or denture problems? and sometimes: Falling or dizzy when standing up and Tiredness or fatigue? Have you fallen 2 or more times in the past year?: No Are you afraid of falling?: Yes Are you a smoker?: yes, and I might quit During the past 4 weeks, how many drinks of wine, beer, or other alcoholic beverages did you have?: no alcohol at all Do you exercise for about 20 minutes 3 or more times a week?: yes, some of the time Have you been given information to help with the following?: yes: Hazards in your house that might hurt you? and yes: Keeping track of your medications? How often do you have trouble taking medicines the way you have been told to take them?: I always take medicine as prescribed How confident are you that you can control & manage most of your health problems?: very confident What is your race?: White Mini Mental State Exam (MMSE) Orientation What is the (year) (season) (date) (day) (month)?: year (2024), season (summer), date (05/13/25), day (monday) and month (april) Where are we (state) (county) (town or city) (hospital) (floor)?: state ([facility]), county ([place]), town or city ([place]) and hospital/clinic ([facility]) Score Score: 9 Activity of Daily Living Bathing - sponge bath, tub bath or shower: receives no assistance (gets in/out by self, if usual bathing means Dressing - getting clothes from closets & drawers, including inner/outer garments & fasteners.: gets clothes & gets completely dressed without help Toileting - going to the 'toilet room' for urine/bowel elimination & cleaning self/arranging clothes: goes to toilet room, cleans self, arranges clothes without help Transfer: moves in & out of bed and chair without help (may use support object) Continence: has occasional 'accidents' Feeding: feeds self without help Total Score: 0 Information obtained from: patient Using telephone: independent Traveling: independent Shopping: independent Preparing meals: independent Housework: independent Taking medicine: independent Managing money: independent PHQ-9 Over the last 2 weeks, how often have you been bothered by any of the following problems? 1. Little interest or pleasure in doing things: not at all 2. Feeling down, depressed, or hopeless: not at all 3. Trouble falling or staying asleep, or sleeping too much: not at all 4. Feeling tired or having little energy: not at all 5. Poor appetite or overeating: not at all 6. Feeling bad about yourself - or that you are a failure or have let yourself or your family down: not at all 7. Trouble concentrating on things, such as reading the newspaper or watching television: not at all 8. Moving or speaking so slowly that other people could have noticed. Or the opposite - being so fidgety or restless that you have been moving around a lot more than usual: not at all 9. Thoughts that you would be better off or of hurting yourself in some way: not at all Total score: 0 Depression Screening Interpretation: Negative Depression Screening Done: Yes 70495 - PHQ-9 Billing: Yes Source: Developed by Drs. Alireza Donovan, Guadalupe Lopez, Sanjeev Mari and colleagues, with an educational keely from [employer]. Review of Systems Const Denies fatigue, Denies fever(s), Denies headache(s) and Denies weakness Eyes Details: Goes to [facility] Denies change in vision and Reports requires corrective lenses ENT Denies dizziness, Denies headache(s) and Denies nasal congestion Card Denies chest pain, Denies lightheadedness, Denies palpitations and Denies dyspnea Resp Denies chest congestion, Denies cough and Denies dyspnea GI Denies abdominal pain, Denies change in bowel habits and Denies heartburn Denies hematuria, Denies urinary frequency, Denies dysuria and Denies urinary urgency Musc Denies deformity, Reports arthralgias (Fingers and wrist), Denies joint swelling and Denies limited range of motion Neuro Denies dizziness, Denies headache(s) and Denies weakness Psych Reports no additional complaints Endo Denies fatigue, Denies polydipsia, Denies polyuria and Denies palpitations Bandar/Lymph Reports no additional complaints Aller/Immun Reports no additional complaints Physical Exam Vital Signs: Last Vital Signs Temp 97.8 F 05/13/25 08:28 Pulse 69 05/13/25 08:28 Resp 16 05/13/25 08:28 BP 100/60 05/13/25 08:28 Pulse Ox 99 05/13/25 08:28 Oxygen Delivery Method Room Air 05/13/25 08:28 BMI result Body Mass Index 25.0 Const General: no acute distress and alert Orientation/consciousness: patient oriented x3 HEENT Head: Yes normocephalic Ears: external ears normal General nose exam: Normal external nose present Face and sinus: Yes face symmetric Mouth: oropharynx normal and moist mucous membranes Eyes General: appearance normal, both eyes and all related structures Neck Neck: Yes full ROM, Yes no lymphadenopathy and Yes supple Thyroid: Thyroid normal Resp Effort & Inspection: normal respiratory effort and able to speak in complete sentences Auscultation: clear to auscultation bilaterally Cardio Rate: regular rate Rhythm: regular rhythm Heart sounds: S1 normal heart sound present and S2 normal heart sound present GI Palpation (GI): Soft to palpation, nontender, no guarding and no masses Auscultation: normal bowel sounds Back/Spine/Pelvis Back: No back tenderness Skin General skin exam: no rashes or lesions noted Neuro General: patient oriented x3, gait normal, moves all extremities, Normal light touch and pain sensation, no focal motor deficits and CN's II-XI intact bilaterally Cognition (Neuro): normal cognition Gait exam (Neuro): Normal gait present Motor exam (neuro): 5/5 motor strength present throughout Extrem General: Yes normal to inspection, Yes full ROM, Yes no joint enlargement, Yes no pedal edema and Yes normal gait Psych Appearance: grossly normal and well kempt Mental Status: mental status grossly normal Speech and movement: Normal speech and movement present Affect: normal affect Results Reviewed Results Reviewed: Name: Neil Phillipssa Sirena Age/Sex: 84/F : 1940 Unit#: [id number] Attend Dr: Elizabet Skinner MD Re01/29/25 Status: DEP REF Location: [facility] Disch: SPEC : [id number] GABRIELA: 01/29/25 STATUS: COMP REQ : [id number] RECD: 01/29/[address]: Elizabet Skinner MD COMP: 01/29/25 ENTERED: 01/29/[address] [facility] [address]: ORDERED: AST, ALT, Lipid Panel, Vitamin D 25-OH, Free T4, TSH Test Result Flag Reference AST (GOT) 19 5-31 U/L ALT (GPT) 11 0-31 U/L Triglyceride 86 <150 mg/dL Desirable Triglyceride: less than 150 mg/dL Borderline High Triglyceride 150-199 mg/dL High Triglyceride: 200-499 mg/dL Very High Triglyceride: greater than or equal to 5OO mg/dL Cholesterol 173 <200 mg/dL Desirable Cholesterol: less than 200 mg/dL Borderline High Cholesterol: 200-239 mg/dL High Cholesterol: greater than 239 mg/dL LDL Calculated 90 <100 mg/dL Desirable LDL: less than 100 mg/dL Near Optimal/Above Optimal LDL: 110-129 mg/dL Borderline High LDL: 130-159 mg/dL High LDL: 160-189 mg/dL Very High LDL: greater than or equal to 190 mg/dL HDL 66 >40 mg/dL Desirable HDL: greater than 40 mg/dL Note: This HDL assay may give artificially low results in patients with liver disease. Vitamin D 25-OH 53.3 >30 ng/mL Health Based Reference Values* < 20 ng/mL Deficient 20-30 ng/mL Insufficient > 30 ng/mL Sufficient *Amaris MILLER. N Engl J Med. 2007;357:266-280 There is no well-established upper level of normal vitamin D levels. Some laboratories use 50 ng/mL as an upper limit of normal. However, toxicity is patient-dependent and may occur at any level. Careful correlation with the patient's presentation is necessary and, if there is concern for vitamin D toxicity, treatment should be considered irrespective of the serum level. Care must be taken in interpreting Vitamin D results from different laboratories and methodologies. Published data demonstrated that results from patients undergoing hemodialysis may show a negative bias when tested with various automated 25-OH vitamin D assays when compared to LC-MS/MS. When testing samples from patients whose predominant form of Vitamin D is Vitamin D2, such as patients receiving Vitamin D2 supplementation, results that are subtherapeutic should be confirmed with another method such as LC-MS/MS. Free T4 1.15 0.71-1.85 ng/dL TSH 3rd Gen. 1.75 0.32-4.0 uIU/mL TSH 3rd Generation ([facility]) Assessment & Plan Assessment & Plan (1) Encounter for subsequent annual wellness visit (AWV) in Medicare patient: Code(s): Z00.00 - Encounter for general adult medical examination without abnormal findings Plan: Medical wellness checklist reviewed, discussed with patient and updated. Patient does not want to go get further mammogram screenings or bone density scan and does not want to get her hearing checked anymore. Up-to-date with all her vaccines. Up-to-date with her MOLST and healthcare proxy. (2) Dyslipidemia: Code(s): E78.5 - Hyperlipidemia, unspecified Plan: Fasting lipids are within normal limits, continued on ezetimibe, refill sent (3) Acquired hypothyroidism: Code(s): E03.9 - Hypothyroidism, unspecified Plan: Thyroid levels are stable and controlled on current dose of levothyroxine will continue at 50 mcg once a day (4) Hiatal hernia: Code(s): K44.9 - Diaphragmatic hernia without obstruction or gangrene Plan: Takes omeprazole as needed (5) COPD (chronic obstructive pulmonary disease): Code(s): J44.9 - Chronic obstructive pulmonary disease, unspecified Plan: Currently on Wixela 250-51 inhalation every 12 hours and has albuterol inhaler as needed to use for episodes of bronchospasm Medications: Refilled omeprazole 20 mg PO DAILY PRN 30 caps 1RF heartburn ezetimibe 10 mg PO DAILY 30 tabs 6RF Quality Reporting (2019) Depression/Bipolar (159/160/161/177) PHQ-9: Total score: 0 Coding Level of Care Code Medicare Subsequent (G0439) Est Pt Level 4 (89205) Diagnoses Encounter for subsequent annual wellness visit (AWV) in Medicare patient Z00.00 Dyslipidemia E78.5 Acquired hypothyroidism E03.9 Hiatal hernia K44.9 COPD (chronic obstructive pulmonary disease) J44.9 CPT Codes Advance Care Planning - Advance Care Planning discussion: On file, no changes ([id number]) Advance Care Planning - Time spent: 1-15 minutes, on File ([id number]) Additional Codes PHQ-9 - 25946 - PHQ-9 Billing: Yes ([id number]) Advance Care Planning Advance Care Planning discussion: On file, no changes Date of discussion: 05/13/25 Who was present: Patient Forms completed: Health Care Proxy and MOLST Time spent: 1-15 minutes, on File Actual minutes spent: 2
--- OUTSIDE RECORDS SUMMARY | 2025-05-13 08:30 | XMS_ITS | Patient Health Record ---
[facility] Address [address] [place] [address] Care Team Providers Care Room Service Runner Name Role Phone Lindsay Traore Primary Care Provider Sheldon Reinoso Unavailable [phone] Allergies Allergen (clinical drug ingredient) Drug/Non Drug Allergy documented on EMR Reaction Allergy Type Onset Date Status atorvastatin Lipitor facial swelling Drug Allergy Active Reason For Referral No Information Medications Medication SIG (Take, Route, Frequency, Duration) Notes Start Date End Date Status Advair Diskus 250-50 MCG/DOSE Inhalation Active Omeprazole 20 MG Oral; Duration: 30 Active Nitro-Bid 2 % as directed Transder mal apply bid to toes during cold weather; Duration: 30 days 07/15/2020 Active Ezetimibe 10 MG Oral; Duration: 30 Active Levothyroxine Sodium 50 MCG Oral; Duration: 30 Active Social History Tobacco Use: Social History Observation Description Date Details (start date - stop date) Former Smoker NA - NA Tobacco Use/Smoking Question Answer Notes Are you a: former smoker When did you stop smoking? 2009 Additional Findings: Tobacco Non-User Current no n-smoker Alcohol Screen Question Answer Notes Did you have a drink containing alcohol in the p ast year? Yes Points 0 Interpretation Negative Tobacco use other than smoking: Question Answer Notes Are you an other tobacco user? No Problems Problem Type SNOMED Code ICD Code Onset Dates Problem Status W/U Status Risk Notes Problem Acquired hammer toe of right foot ([id number]) Other hammer toe(s) (acquired), right foot (M20.41) Active confirmed Problem Raynaud's disease (035836384) Raynaud's disease without gangrene (I73.00) Active confirmed Plan Of Treatment Pending Test Test Name Order Date X ray : Foot, right 3V 09/25/2019 X ray : Foot, right 3V 05/06/2020 X ray : Foot, right 3V 05/22/2020 X ray : Foot, right 3V 06/12/2020 [id number], Toes 06/12/2020 Insurance Providers Payer Name Payer Address Payer Phone Subscriber Number Group Number Insured Name Patient Relationship to Insured Coverage Start Date Coverage End Date Medicare National [employer] [address] [place] [address] [id number] Vikki Phillips Self - patient is the insured [employer] [address] [place] [address] [id number] Vikki Phillips Self - patient is the insured Medical (General) History Medical History History ICD Code Arthritis Broken bones CAD (Cholesterol) Cataracts Lung disease Osteoporosis thyroid Chicken pox Joint implants/screws Surgical History Surgery Date(Month/Year) appendectomy 1955 hysterectomy 1976 broke ankle 1984 HT R5th toe, Skin Disease R 04/30/2020 gall bladder surgery Foot right surgery 04/30/20
== END 2025-05-13 09:15 | disposition home or self-care (01) ==
LOC: HO.HMCC 08:23
PROVIDERS: PCP Internal Medicine; Visit Provider Internal Medicine
DX: Z00.00 Encounter for general adult medical examination without abnormal findings (principal); E78.5 Hyperlipidemia, unspecified; J44.9 Chronic obstructive pulmonary disease, unspecified; E03.9 Hypothyroidism, unspecified; K44.9 Diaphragmatic hernia without obstruction or gangrene

== ENCOUNTER → 2025-05-13 08:22 | Outpatient (BNVA) | payer MEDICARE, SELFPAY | PROVIDERS: PCP Internal Medicine; Visit Provider Internal Medicine | DX: Z00.00 Encounter for general adult medical examination without abnormal findings (principal); E78.5 Hyperlipidemia, unspecified; E03.9 Hypothyroidism, unspecified; K44.9 Diaphragmatic hernia without obstruction or gangrene; J44.9 Chronic obstructive pulmonary disease, unspecified | CPT/HCPCS: 96127 ==

== ENCOUNTER 2025-07-16 10:54 | Outpatient (AMB) | payer MEDICARE, SELFPAY ==
[2025-07-16 11:03] VITALS: BP 94/60; PULSE 84; TEMP 36.3; O2SAT 100; BMI 24.4
--- NOTE | 2025-07-16 11:03 | AM.OFFWIN_ITS ---
Intake Vital Signs 07/16/25 11:03 Height 5 ft Weight 125 lb BMI 24.4 BP 94/60 Blood Pressure Location Lt brachial Position Sitting Pulse 84 Pulse Source Pulse Oximeter Temp 97.4 F Temp Source Oral Pulse Oximetry (%) 100 Oxygen Delivery Method Room Air Intake Visit Reasons: EP bruising on right arm turning black Intake Note: pt presents with slow healing and dark bruise on right forearm Patient Tobacco Use Status: Current someday Tobacco user Allergies atorvastatin (From Lipitor) Allergy (Intermediate, Verified 07/16/25 11:03) Hives Do you need a note to return to daycare/school/sports/work: No HPI HPI Comments History of Present Illness Details History of Present Illness - The patient is an 85-year-old female p resenting with concerns of easy bruising. - Reports bruising easily without being on blood thinners, with bruises occurring during routine activities. - Bruises are not healing as expected, w ith one being more severe and accompanied by a small cut. - Mild tenderness noted in the bruised a shayy, but no warmth or drainage. Physical Exam General: Cooperative, healthy appearing, comfortable, no acute distress and well developed Orientation: Patient oriented x3 Limitations: No limitations Head: Normal to inspection Ears: Hearing grossly normal bilaterally Nose: Normal External nose present Face and sinus: Normal facial exam Eyes: Appearance normal, both eyes and all related structures Neck: Normal visual inspection and Yes full ROM Respiratory: Normal respiratory effort and able to speak in complete sentences. Skin: 3 small 1.5cm circular areas of ecchymosis noted on right forearm, with some slight tenderness, 2 areas with central clearning and one with small scab. Left forearm with 2 small 1cm circular areas of ecchymosis. Bilateral forearms with no signs of infection, drainage or warmth. Neuro: Patient oriented x3 Extremities: Normal to inspection, as above PFSH Medical History Vitamin D deficiency Hiatal hernia COPD (chronic obstructive pulmonary disease) Osteopenia of lumbar spine Acquired hypothyroidism Dyslipidemia Osteoarthritis Carpal tunnel syndrome on both sides Hx of gallstones Surgical History Hx laparoscopic cholecystectomy History of partial hysterectomy Hx of appendectomy Family History Mother CVA (cerebral vascular accident) Acquired hypothyroidism Atrial fibrillation Father CVA (cerebral vascular accident) Diabetes mellitus Brother Diabetes mellitus Social History Housing: House Patient Tobacco Use Status: Current someday Tobacco user e-Cigarette/Vaping Use: Never Used Current occupational status: retired Cognitive needs: No Hearing needs: No Vision needs: Yes Review of Systems Const All systems reviewed & are unremarkable except as noted in HPI and below Physical Exam Vital Signs: Last Vital Signs Temp 97.4 F 07/16/25 11:03 Pulse 84 07/16/25 11:03 BP 94/60 07/16/25 11:03 Pulse Ox 100 07/16/25 11:03 Oxygen Delivery Method Room Air 07/16/25 11:03 BMI result Body Mass Index 24.4 Assessment & Plan Assessment & Plan (1) Bruise of both arms: Code(s): S40.021A - Contusion of right upper arm, initial encounter; S40.022A - Contusion of left upper arm, initial encounter Qualifiers: Encounter type: initial encounter Qualified Code(s): S40.021A - Contusion of right upper arm, initial encounter; S40.022A - Contusion of left upper arm, initial encounter Plan: Plan Patient was informed and verbally consented to the use of an ambient scribe for clinic note documentation during this visit. - Normal bruising on b/l forearms, no signs of infection or other issues noted. - Observation and reassurance provided as bruising appears normal and not indicative of underlying pathology. Coding Level of Care Code Est Pt Level 2 (51483) Diagnoses Contusion of both upper extremities, initial encounter S40.021A; S40.022A Encounter type: initial encounter
--- OUTSIDE RECORDS SUMMARY | 2025-07-16 13:52 | XMS_ITS | Clinical Summary ---
Author Organization [facility] Address [address] [facility] [address] [place] [address] Phone Care Team Providers Care Diesel Power Mechanic Name Role Phone Roc Vickers MD Primary Care Provider Unavail able Social History Tobacco Use Types Packs/Day Years Used Date Smoking Tobacco: Never Assessed Education Answer Date Recorded Are you interested in more education? Not on bryce e 02/24/2023 Are you concerned about learning? Not on file 02/24/2023 No 02/24/2023 No 02/24/2023 Digital Access Answer Date Recorded No 03/28/2023 No 03/28/2023 No 03/28/2023 Reliable internet access at home? Not on file 03/28/2023 Device with a working camera? Not on file Comments Unknown Sex and Gender Information Value Date Recorded Sex Assigned at Not on file Legal Sex Female 2:23 PM EST Gender Identity Not on file Sexual Orientation Not on file Last Filed Vital Signs Vital Sign Reading Time Taken Comments Blood Pressure 110/58 12/06/2018 11:55 AM EST Pulse - - Temperature - - Respiratory Rate - - Oxygen Saturation 95% 12/06/2018 11:00 AM EST Inhaled Oxygen Concentration - - Weight - - Height - - Body Mass Index - - Plan of Treatment Not on file Medical Devices Not on file Insurance MEDICARE PART A & B [employer] SUPPLEMENT MEDICARE PART A & B [employer] MED[employer] SUPPLEMENT MEDICARE PART A & B [employer] MED[employer] SUPPLEMENT MEDICARE PART A & B [employer] MED[employer] SUPPLEMENT MEDICARE PART A & B [employer] MEDEX SUPPLEMENT MEDICARE PART A & B [place] [employer] MEDEX SUPPLEMENT MEDICARE PART A & B [employer] MED[employer] SUPPLEMENT MEDICARE PART A & B [employer] MEDEX SUPPLEMENT MEDICARE PART A & B [place] [employer] MEDEX SUPPLEMENT Care Teams Diesel Power Mechanic Relationship Specialty Start Date End Date Roc Vickers MD PCP - General Endocrinology 12/06/18 Additional Source Comments The information contained in this document represents components of the legal health record. It is not the complete legal health record.[facility]
--- OUTSIDE RECORDS SUMMARY | 2025-07-16 13:52 | XMS_ITS | Encounter Summary ---
Author Organization [facility] Address [address] [place] [address] Phone Care Team Providers Care Layer Off Name Role Phone Roc Vickers MD Primary Care Provider Unavail able Encounter Details Date Type Department Care Team (Late st Contact Info) Description 12/06/2018 Ancillary Orders [facility] 22 [facility] 3rd Floor, [address] [place] [address] Anila Mascorro PA [address] [place] [address] Social History Tobacco Use Types Packs/Day Years Used Date Smoking Tobacco: Never Assessed Comments Unknown Sex and Gender Information Value Date Recorded Sex Assigned at Not on file Legal Sex Female 2:23 PM EST Gender Identity Not on file Sexual Orientation Not on file documented as of this encounter Plan of Treatment Not on file documented as of this encounter Visit Diagnoses Not on filedocumented in this encounter Care Teams Layer Off Relationship Specialty Start Date End Date Roc Vickers MD PCP - General Endocrinology 12/06/18 documented as of this encounter Additional Source Comments The information contained in this document represents components of the legal health record. It is not the complete legal health record.[facility]
--- OUTSIDE RECORDS SUMMARY | 2025-07-16 13:52 | XMS_ITS | Encounter Summary ---
Author Organization [facility] Address [address] [address] Phone Care Team Providers Care Highway Maintenance Technician Name Role Phone Roc Vickers MD Primary Care Provider Unavail able Reason for Referral * MRI/CAT Scan - Closed Specialty Diagnoses / Procedures Referred By Rose Mary ramirez Referred To Contact Radiology Diagnoses Chest pain, unspecified type Procedures NC Myocardial Perfusion Pharmacologic Stress Multiple NC Myocardial Perfusion Stress Single NC Myocardial Perfusion Pharmacologic Stress Multiple Oniel Yost DO Phone: tel: fax: mailto: Referral ID Status Reason Start Date Expiration Date Visits Re quested Visits Authorized [id number] Closed 11/14/2018 11/14/2019 1 1 Encounter Details Date Type Department Care Team (Latest Contact Info) Description 12/06/2018 Ancillary Orders [facility] 22 [facility] 3rd [facility], [address] [place] [address] Oniel Yost DO [address] [address] [email or web address] Chest pain, unspecified type Social History Tobacco Use Types Packs/Day Years Used Date Smoking Tobacco: Never Assessed Comments Unknown Sex and Gender Information Value Date Recorded Sex Assigned at Not on file Legal Sex Female 2:23 PM EST Gender Identity Not on file Sexual Orientation Not on file documented as of this encounter Plan of Treatment Not on file documented as of this encounter Results * NC Myocardial Perfusion Pharmacologic Stress Multiple (12/06/2018 11:56 AM EST) Nuc Stress EF 58 % LV Systolic Volume Index 35 mL/m2 LV Diastolic Volume Index 83 mL/m2 Anatomical Region Laterality Modality Heart, Vascular Ultrasound Narrative 12/07/2018 12:03 PM EST Normal study. There is no evidence of myocardial infarction or ischemia. Normal LV size and function with no regional wall motion abnormalities. Very low likelihood of hemodynamically significant coronary artery disease. Low risk study for myocardial events or cardiac in the next two years. Nuclear Study Quality Overall image quality is good. TYPE OF STUDY: Myocardial Perfusion Imaging after Regadenoson protocol with gated SPECT. PROTOCOL USED: One day stress protocol only in the supine and prone position. Images were obtained in gated tomographic technique. Images were processed in SPECT format, reconstructed tomographically and compared [id number] in short axis, horizontal long axis and vertical long axis. DOSE: Technetium 99m Sestamibi 12.5 mCi injected intravenously during stress on 12/06/2018 with post injection scan time of 20 minutes. . Breast attenuation artifact is present. Study was gated successfully.. Perfusion Defect The lung to heart ratio is 0.10. Response to Stress BMI: Patient was unable to walk on TM due to leg weakness and gait instability. The patient was infused with 0.4 mg of Regadenoson (Lexiscan) intravenously over 10 seconds followed immediately by the injection of the Tc99m Sestamibi. Patient tolerated infusion without complications. Test terminated due to completion of protocol. SUMMARY: 1. RESTING ECG: NSR 2. EXERCISE ECG: No ischemic ECG changes with Lexiscan injection. 3. SYMPTOMS: Patient reported abdominal pain/cramping with Lexiscan injection and 4/10 substernal chest pain in mid recovery that resolved spontaneously by late recovery. 4. PHYSIOLOGY: Appropriate physiologic response to Lexiscan injection. Resting HR of 65 lesley to a max HR of 88. Vital signs stable and returned to baseline prior to discharge from the lab. 5. ARRHYTHMIA: sinus arrhythmia with Lexiscan injection and throughout recovery. CONCLUSION: Abnormal ECG portion of pharmacologic nuclear stress test. No ECG changes suggestive of ischemia, but with symptoms concerning for angina. Patient tolerated Lexiscan injection without complication. Nuclear images and report to follow. Anila A Maribel, PA-C . Stress Function Comments Post-stress ejection fraction was 58%. Stress end diastolic index: 83 mL/m2. Stress end systolic index: 35 mL/m2. Nuclear Prior Study There is no prior study available for comparison. Perfusion Scoring Stress Summed Score: 0 Percent Normal: 0.00% The left ventricular perfusion is normal. Procedure Note Oniel Ellison MD / Cliff De Souza MD - 12/07/2018 Normal study. There is no evidence of myocardial infarction or ischemia. Normal LV size and function with no regional wall motion abnormalities. Very low likelihood of hemodynamically significant coronary arterydisease. Low risk study for myocardial events or cardiac in the next twoyears. Oniel Yost DO CV NM CARDIAC Final Result documented in this encounter Visit Diagnoses Diagnosis Chest pain, unspecified type Chest pain, unspecified type documented in this encounter Care Teams Highway Maintenance Technician Relationship Specialty Start Date End Date Roc Vickers MD PCP - General Endocrinology 12/06/18 documented as of this encounter Additional Source Comments The information contained in this document represents components of the legal health record. It is not the complete legal health record.[facility]
--- OUTSIDE RECORDS SUMMARY | 2025-07-16 13:53 | XMS_ITS | Encounter Summary ---
Author Organization [facility] Address [address] [facility] [address] [place] [address] Phone Care Team Providers Care Ceiling Installer Name Role Phone Roc Vickers MD Primary Care Provider Unavail able Encounter Details Date Type Department Care Team (Latest Contact Info) Description 12/06/2018 Ancillary Orders [facility] 22 [facility] 3rd Floor, [address] [place] [address] Oniel Yost DO 22 [facility] [address] [place], [place] [id number] [email or web address] Chest pain, unspecified type Social History [...] documented as of this encounter Visit Diagnoses Diagnosis Chest pain, unspecified type documented in this encounter Care Teams Ceiling Installer Relationship Specialty Start Date End Date Roc Vickers MD PCP - General Endocrinology 12/06/18 documented as of this encounter Additional Source Comments The information contained in this document represents components of the legal health record. It is not the complete legal health record.[facility]
--- OUTSIDE RECORDS SUMMARY | 2025-07-16 13:53 | XMS_ITS | Patient Health Record ---
[facility] Address [address] [facility] [place] [address] Care Team Providers Care Dividing Machine Operator Helper Name Role Phone Lindsay Traore Primary Care Provider Sheldon Reinoso Unavailable [phone] Allergies Allergen (clinical drug ingredient) Drug/Non Drug [...] Problem Acquired hammer toe of right foot (7391576387065 105) Other hammer toe(s) (acquired), right foot (M20.41) Active confirmed Problem Raynaud's disease (718320679) Raynaud's disease without gangrene (I73.00) Active confirmed Plan Of Treatment Pending Test Test Name Order Date X ray : Foot, right 3V 09/25/2019 X ray : Foot, right 3V 05/06/2020 X ray : Foot, right 3V 05/22/2020 X ray : Foot, right 3V 06/12/2020 [id number], Toes 06/12/2020 Insurance Providers Payer Name Payer Address Payer Phone Subscriber Number Group Number Insured Name Patient Relationship to Insured Coverage Start Date Coverage End Date Medicare National Govt Svcs Inc [address] [place] [address] [id number] Vikki Phillips Self - patient is the insured [employer] Blue Shield [address] [place] [address] [id number] Vikki Phillips Self - patient is the insured Medical (General) History Medical History History ICD Code Arthritis Broken bones CAD (Cholesterol) Cataracts Lung disease Osteoporosis thyroid Chicken pox Joint implants/screws Surgical History Surgery Date(Month/Year) appendectomy 1955 hysterectomy 1976 broke ankle 1984 HT R5th toe, Skin Disease R 04/30/2020 gall bladder surgery Foot right surgery 04/30/20
--- OUTSIDE RECORDS SUMMARY | 2025-07-16 13:53 | XMS_ITS | Encounter Summary ---
Author Organization [facility] Address [address] [facility] [address] [place] [address] Phone Care Team Providers Care Blankbook Forwarder Name Role Phone Unknown, Unknown Primary Care Provider Roc Cosme MD Primary Care Provider Unavail able Encounter Details Date Type Department Care Team (Latest Contact Info) Description 11/14/2018 Transcribe [facility] 22 [facility] 3rd Floor, [address] [place] [address] Oniel Yost DO 22 [facility] [address] [place] [address] [email or web address] Chest pain, unspecified type (Primary Dx) Social History Tobacco Use Types Packs/Day Years [...] encounter Visit Diagnoses Diagnosis Chest pain, unspecified type- Primary documented in this encounter Care Teams Blankbook Forwarder Relationship Specialty Start Date End Date Unknown, Unknown, PCP - General 11/14/18 12/05/18 Roc Vickers MD PCP - General Endocrinology 12/06/18 documented as of this encounter Additional Source Comments The information contained in this document represents components of the legal health record. It is not the complete legal health record.[facility]
--- OUTSIDE RECORDS SUMMARY | 2025-07-16 13:53 | XMS_ITS ---
Author Name [facility] Organization Unknown Care Team Organization Name Specialty Phone Email Start Date End Da te [facility] Lindsay Traore Primary Care 09/06/2022 4
== END 2025-07-16 11:40 | disposition home or self-care (01) ==
PROVIDERS: PCP Internal Medicine; Visit Provider Physician Assistant
DX: S40.021A Contusion of right upper arm, initial encounter (principal); S40.022A Contusion of left upper arm, initial encounter

== ENCOUNTER → 2025-07-16 10:54 | Outpatient (BNVA) | payer MEDICARE, SELFPAY | PROVIDERS: PCP Internal Medicine; Visit Provider Physician Assistant | DX: S40.022A Contusion of left upper arm, initial encounter (principal) | CPT/HCPCS: 99212 ==

== ENCOUNTER 2025-10-20 08:17 | Outpatient (REF) | payer MEDICARE, SELFPAY ==
--- OUTSIDE RECORDS SUMMARY | 2025-10-20 08:24 | XMS_ITS | Encounter Summary ---
Author Organization [facility] Address [address] [facility] [address] [place] [address] Phone Care Team Providers Care Second Mate Name Role Phone Unknown, Unknown Primary Care Provider Roc Cosme MD Primary Care Provider Unavail able Encounter Details Date Type Department Care Team (Latest Contact Info) Description 11/14/2018 Transcribe Orders [facility] 22 [facility] 3rd Floor, [address] [place] [address] Oniel Yost DO 22 [facility] [address] [place] [id number] [email or web address] Chest pain, unspecified type (Primary Dx) [...] Primary documented in this encounter Care Teams Second Mate Relationship Specialty Start Date End Date Unknown, Darlyn, PCP - General 11/14/18 12/05/18 Roc Vickers MD PCP - General Endocrinology 12/06/18 documented as of this encounter Additional Source Comments The information contained in this document represents components of the legal health record. It is not the complete legal health record.[facility]
--- OUTSIDE RECORDS SUMMARY | 2025-10-20 08:24 | XMS_ITS | Clinical Summary ---
Author Organization [facility] Address [address] [facility] [address] [facility] [address] [place] [address] Phone Care Team Providers Care Hotel Recreational Facilities Manager Name Role Phone Roc Vickers MD Primary [...] file Insurance MEDICARE PART A & B [employer] MEDEX SUPPLEMENT MEDICARE PART A & B [employer] MEDEX SUPPLEMENT MEDICARE PART A & B [employer] MEDEX SUPPLEMENT MEDICARE PART A & B [employer] MEDEX SUPPLEMENT MEDICARE PART A & B [employer] MEDEX SUPPLEMENT MEDICARE PART A & B [employer] MEDEX SUPPLEMENT MEDICARE PART A & B [employer] MEDEX SUPPLEMENT MEDICARE PART A & B [employer] MEDEX SUPPLEMENT MEDICARE PART A & B [place] [employer] MEDEX SUPPLEMENT Care Teams Hotel Recreational Facilities Manager Relationship Specialty Start Date End Date Roc Vickers MD PCP - General Endocrinology 12/06/18 Additional Source Comments The information contained in this document represents components of the legal health record. It is not the complete legal health record.[facility]
--- OUTSIDE RECORDS SUMMARY | 2025-10-20 08:24 | XMS_ITS | Encounter Summary ---
Author Organization [facility] Address [address] [facility] [address] [place] [address] Phone Care Team Providers Care Operation Specialist Name Role Phone Roc Vickers MD Primary Care Provider Unavail able Encounter Details Date Type Department Care Team (Latest Contact Info) Description 12/06/2018 Ancillary Orders [facility] 22 [facility] 3rd Floor, [address] [place] [address] Oniel Yost DO 22 [facility] [address] [place], [place] [id number] [email or web address] Chest pain, unspecified type Social [...] type documented in this encounter Care Teams Operation Specialist Relationship Specialty Start Date End Date Roc Vickers MD PCP - General Endocrinology 12/06/18 documented as of this encounter Additional Source Comments The information contained in this document represents components of the legal health record. It is not the complete legal health record.[facility]
--- OUTSIDE RECORDS SUMMARY | 2025-10-20 08:24 | XMS_ITS | Encounter Summary ---
Author Organization [facility] Address [address] [place] [address] Phone Care Team Providers Care Bindery Cutter Operator Name Role Phone Roc Vickers MD Primary Care Provider Unavail able Encounter Details Date Type Department Care Team (Late st Contact Info) Description 12/06/2018 Ancillary Orders [facility] 22 [facility] 3rd Floor, [address] [place] [address] Anila Mascorro PA [address] [place] [address] Social History Tobacco Use Types Packs/Day Years [...] on filedocumented in this encounter Care Teams Bindery Cutter Operator Relationship Specialty Start Date End Date Roc Vickers MD PCP - General Endocrinology 12/06/18 documented as of this encounter Additional Source Comments The information contained in this document represents components of the legal health record. It is not the complete legal health record.[facility]
--- OUTSIDE RECORDS SUMMARY | 2025-10-20 08:24 | XMS_ITS | Encounter Summary ---
Author Organization [facility] Address [address] [address] Phone Care Team Providers Care Block Inspector Name Role Phone Roc Vickers MD Primary Care Provider Unavail able Reason for Referral * MRI/CAT Scan - Closed Specialty Diagnoses / Procedures Referred By Rose Mary ramirez Referred To Contact Radiology Diagnoses Chest pain, unspecified type Procedures NC Myocardial Perfusion Pharmacologic Stress Multiple NC Myocardial Perfusion Stress Single NC Myocardial Perfusion Pharmacologic Stress Multiple Oniel oYst DO Phone: tel: fax: mailto: Referral ID Status Reason Start Date Expiration Date Visits Re quested Visits Authorized [id number] Closed 11/14/2018 11/14/2019 1 1 Encounter Details Date Type Department Care Team (Latest Contact Info) Description 12/06/2018 Ancillary Orders [facility] 22 [facility] 3rd [facility], [address] [place] [address] Oniel Yost DO [address] [address] [email or web address] Chest pain, unspecified type Social History [...] in SPECT format, reconstructed tomographically and compared [id number] in short axis, horizontal long axis and [...] Nuclear images and report to follow. Anila López PA-C . Stress Function Comments Post-stress ejection [...] type documented in this encounter Care Teams Block Inspector Relationship Specialty Start Date End Date Roc Vickers MD PCP - General Endocrinology 12/06/18 documented as of this encounter Additional Source Comments The information contained in this document represents components of the legal health record. It is not the complete legal health record.[facility]
--- OUTSIDE RECORDS SUMMARY | 2025-10-20 08:24 | XMS_ITS | Patient Health Record ---
Author Organization [facility] Address [address] [facility] [place] [address] Care Team Providers Care Nail Machine Operator Name Role Phone Lindsay Traore Primary Care Provider Sheldon Lal Unavailable [phone] Allergies Allergen (clinical drug ingredient) Drug/Non Drug [...] Problem Acquired hammer toe of right foot ([id number] 105) Other hammer toe(s) (acquired), right foot (M20.41) Active confirmed Problem Raynaud's disease (408162712) Raynaud's disease without gangrene (I73.00) Active confirmed Plan Of Treatment Pending Test Test Name Order Date X ray : Foot, right 3V 09/25/2019 X ray : Foot, right 3V 05/06/2020 X ray : Foot, right 3V 05/22/2020 X ray : Foot, right 3V 06/12/2020 [id number], Toes 06/12/2020 Insurance Providers Payer Name Payer Address Payer Phone Subscriber Number Group Number Insured Name Patient Relationship to Insured Coverage Start Date Coverage End Date Medicare National Govt Svcs Inc [address] [place] [address] [id number] Vikki Phillips Self - patient is the insured [employer] [address] [place] [address] [phone] [id number] Vikki Phillips Self - patient is the insured Medical (General) History Medical History History ICD Code Arthritis Broken bones CAD (Cholesterol) Cataracts Lung disease Osteoporosis thyroid Chicken pox Joint implants/screws Surgical History Surgery Date(Month/Year) appendectomy 1955 hysterectomy 1976 broke ankle 1984 HT R5th toe, Skin Disease R 04/30/2020 gall bladder surgery Foot right surgery 04/30/20
[2025-10-20 10:05] LABS: MANUAL DIFF FLAG NO
[2025-10-20 10:15] LABS: Hematocrit 36.9 % (37.0-47.0); Hemoglobin 12.2 g/dl (12.0-16.0); Imm Gran Abs Auto 0.02 X10*3/uL (0.00-0.03); Imm Gran Pct Auto 0.3 % (0.0-0.4); Lymphocytes Absolute Auto 2.4 X10*3/uL (1.2-4.9); Mean Corpuscular HGB Conc 33.1 g/dl (31.0-35.0); Mean Corpuscular Hemoglobin 31.7 pg (27.0-33.0); Mean Corpuscular Volume 95.8 fL (80.0-98.0); NRBC Abs Auto 0.000 X10*3/uL (0.0-0.012); NRBC Pct Auto 0.0 /100WBC (0.0-0.2); Platelet Count 220 X10*3/uL (160-400); Red Blood Count 3.85 X10*6/uL (4.20-5.50); White Blood Count 7.9 X10*3/uL (4.8-10.8)
[2025-10-20 10:54] LABS: Alanine Aminotransferase 10 U/L (0-31); Anion Gap 12 (12-20); Aspartate Amino Transferase 20 U/L (5-31); Blood Urea Nitrogen 30 mg/dL (9-16); Calcium 9.2 mg/dL (8.4-10.2); Carbon Dioxide 27 mmol/L (22-29); Chloride 109 mmol/L (96-108); Cholesterol 160 mg/dL (<200); Estimated Glomerular Filt Rate > 60; HDL Cholesterol 61 mg/dL (>40); Potassium 4.3 mmol/L (3.3-5.1); Sodium 144 mmol/L (135-145); Triglycerides 59 mg/dL (<150)
[2025-10-20 10:56] LABS: Free T4 (Free Thyroxine) 1.22 ng/dL (0.71-1.85); Thyroid Stimulating Hormone 1.20 uIU/mL (0.32-4.0)
[2025-10-20 11:15] LABS: Folate 8.3 ng/mL (> or = 4.0); Vitamin B12 246 pg/mL (200-900)
== END 2025-10-20 08:18 | disposition home or self-care (01) ==
LOC: HO.HMGCLDS 08:17
PROVIDERS: PCP Internal Medicine; Visit Provider Internal Medicine
DX: K44.9 Diaphragmatic hernia without obstruction or gangrene (principal); J44.9 Chronic obstructive pulmonary disease, unspecified; M85.88 Other specified disorders of bone density and structure, other site; E03.9 Hypothyroidism, unspecified; E78.5 Hyperlipidemia, unspecified; Z13.21 Encounter for screening for nutritional disorder
CPT/HCPCS: 36415; 80048; 80061; 82306; 82607; 82746; 84439; 84443; 84450; 84460; 85025

== ENCOUNTER 2025-10-22 10:27 | Outpatient (AMB) | payer MEDICARE, SELFPAY ==
[2025-10-22 10:32] VITALS: BP 100/60; PULSE 81; RESP 16; TEMP 36.7; O2SAT 100; BMI 24.6
--- NOTE | 2025-10-22 10:32 | A.OFFPC_ITS ---
Vital Signs 10/22/25 10:32 Height 5 ft Weight 126 lb BMI 24.6 BP 100/60 Blood Pressure Location Lt brachial Position Sitting Respiration 16 Pulse 81 Pulse Source Pulse Oximeter Temp 98.0 F Temp Source Oral Pulse Oximetry (%) 100 Oxygen Delivery Method Room Air Intake Visit Reasons: 5 months ffup lipids, thyroid Intake Note: Pt is here today for her 5mo. f/u Director Of Medical Staff Services Required: No Allergies atorvastatin (From Lipitor) Allergy (Intermediate, Verified 10/31/25 00:34) Hives Medication List - Last Reconciled 10/31/25 by Elizabet Skinner MD albuterol sulfate 2.5 mg (3 mL) inhalation QID PRN calcium carb,lactat-vitamin D3 200 mg-6.25 mcg (250 unit) 2 tabs PO DAILY ezetimibe 10 mg PO DAILY ibuprofen-diphenhydramine cit 200-38 mg (Advil PM) 1 cap PO BEDTIME levothyroxine 50 mcg PO DAILY [nebulizer supplies including filter, mouth piece and tubing As directed] omeprazole 20 mg PO DAILY PRN Wixela Inhub 250-50 mcg/dose (fluticasone propion-salmeterol) 1 inh inhalation Q12H NS Tobacco use date assessed: 10/22/25 Fall risk assessment: No Falls in past year Last assessed Fall Risk: 10/22/25 Dental Screening Dental Screen Date: 10/22/25 Did you have a dental visit in the last 12 months?: Yes Did you have a dental problem in the last 6 months where you did not have access to dental care?: No Was dental information given to patient?: Patient has dentist HPI 5 months ffup lipids, thyroid HPI Details The patient is an 85-year-old female presenting for a follow-up visit The patient reports nocturnal enuresis, stating she urinates in her sleep without sensation and wakes up to a full pad in the morning. She changes her pad about three times a day to avoid urinary tract infections and attempts Kegel exercises. She reports experiencing heartburn at night, which is exacerbated by lying on her left side. She manages this with taking omeprazole as needed , and by being mindful of her diet. The patient has a history of a small hiatal hernia that she feels is becoming more bothersome, sometimes causing food like salad, cucumber, or meat to feel stuck. The patient experiences dizziness upon getting up in the morning, which typically resolves after about an hour. She notes that her blood pressure has been on the low side her whole life and she is not on any blood pressure medication. She also reports experiencing xerostomia, uses Biotene Latest fasting labs showed normal lipids and thyroid levels, compliant with taking medications The patient reports subjective short-term memory impairment but has good long- term memory. She lives alone since her from bladder cancer three years ago, and she reports that the current month is difficult for her due to the anniversary of his . She experiences anxiety while driving in heavy traffic and limits her driving to local roads and short distances only.. Family history is significant for diabetes in her father and brother. There is a history of longevity in her family, with her mother living to 92 and a paternal aunt to 101. Jo is up to date on her vaccinations, including flu, COVID, pneumonia, shingles (2 doses), RSV, and tetanus. [facility] Medical History (Updated 10/31/25 @ 00:51 by Elizabet Skinner MD) Nocturnal enuresis Vitamin D deficiency Hiatal hernia COPD (chronic obstructive pulmonary disease) Osteopenia of lumbar spine Acquired hypothyroidism Dyslipidemia Osteoarthritis Carpal tunnel syndrome on both sides Hx of gallstones Surgical History Hx laparoscopic cholecystectomy History of partial hysterectomy Hx of appendectomy Family History Mother CVA (cerebral vascular accident) Acquired hypothyroidism Atrial fibrillation Father CVA (cerebral vascular accident) Diabetes mellitus Brother Diabetes mellitus Social History Housing: House Patient Tobacco Use Status: Current someday Tobacco user e-Cigarette/Vaping Use: Never Used Current occupational status: retired Cognitive needs: No Hearing needs: No Vision needs: Yes Questionnaire PHQ-9 Over the last 2 weeks, how often have you been bothered by any of the following problems? Depression Screening Interpretation: Negative Depression Screening Done: Yes Source: Developed by Drs. Alireza Donovan, Guadalupe Lopez, Sanjeev Mari and colleagues, with an educational keely from [employer]. Thrive Questionnaire Date Thrive assessed: 02/03/25 What is your living situation today?: I have a steady place to live Within the past 12 months, did the food you bought not last and you didn't have the money to get more?: Never true Within the past 12 months, did you worry whether your food would run out before you got money to buy more?: Never true Do you have trouble paying for medicines?: No Do you have trouble getting transportation to medical appointments?: No Do you have trouble paying your heating and electricity bill?: No Do you have trouble taking care of your child, family member or friend?: No Do you have trouble with day-to-day activities such as bathing, preparing meals, shopping, managing finances, etc.?: No Are you currently unemployed and looking for a job?: No Are you interested in more education?: No Currently or been in a relationship where the following occur: No concerns reported THRIVE Score: 0 CHRISTIANO-7 AMB Questionnaire CHRISTIANO-7 Date CHRISTIANO - 7 assessed: 02/03/25 Source: Developed by Drs. Alireza Donovan, Guadalupe Lopez, Sanjeev Mari and colleagues, with an educational keely from [employer]. Review of Systems Const Denies fatigue, Denies headache(s) and Denies weakness Eyes Details: Goes to [facility] Denies change in vision and Reports requires corrective lenses ENT Denies dizziness, Denies headache(s) and Denies nasal congestion Card Denies chest pain, Denies lightheadedness, Denies palpitations and Denies dys pnea Resp Denies chest congestion, Denies cough and Denies dyspnea GI Denies abdominal pain, Denies change in bowel habits and Denies heartburn Denies hematuria, Denies urinary frequency, Denies dysuria and Denies urinary urgency Musc Denies deformity, Reports arthralgias (Fingers and wrist), Denies joint swelling and Denies limited range of motion Neuro Denies dizziness, Denies headache(s) and Denies weakness Psych Reports no additional complaints Endo Denies fatigue, Denies polydipsia, Denies polyuria and Denies palpitations Bandar/Lymph Reports no additional complaints Aller/Immun Reports no additional complaints Physical exam (Primary Care) Vital Signs: Last Vital Signs Temp 98.0 F 10/22/25 10:32 Pulse 81 10/22/25 10:32 Resp 16 10/22/25 10:32 BP 100/60 10/22/25 10:32 Pulse Ox 100 10/22/25 10:32 Oxygen Delivery Method Room Air 10/22/25 10:32 BMI result Body Mass Index 24.6 Tobacco/Smoking Status: Tobacco use Status Tobacco use date assessed 10/22/25 10/22/25 10:36 Patient Tobacco Use Status Current someday Tobacco 10/22/25 10:36 e-Cigarette/Vaping Use Never Used 10/22/25 10:36 Depression Screening Interpretation: Negative Thrive Assessment: Date of Thrive Assessment Date Thrive assessed 02/03/25 10/22/25 10:36 Currently or been in a relationship where the following occur: No concerns reported Const General: no acute distress and alert Orientation/consciousness: patient oriented x3 HENMT Head: Yes normocephalic Ears: external ears normal General nose exam: Normal external nose present Face and sinus: Yes face symmetric Mouth: moist mucous membranes Eyes General: appearance normal, both eyes and all related structures Neck Other: Supple, no lymphadenopathy, thyroid gland nonpalpable and nontender to palpation Resp Effort & Inspection: normal respiratory effort and able to speak in complete sentences Auscultation: clear to auscultation bilaterally Cardio Other: S1-S2 present regular rate and rhythm GI Palpation (GI): Soft to palpation, nontender, no guarding and no masses Auscultation: normal bowel sounds Back/Spine/Pelvis Back: No back tenderness Neuro General: patient oriented x3, gait normal, tone normal, moves all extremities and no focal motor deficits Cognition (Neuro): normal cognition Extrem General: Yes full ROM, Yes no joint enlargement, Yes no clubbing, cyanosis or edema, Yes no calf tenderness and Yes normal gait Psych Appearance: grossly normal and well kempt Mental Status: mental status grossly normal Speech and movement: Normal speech and movement present Affect: normal affect Results Reviewed Results Reviewed: Name: Vikki Phillips Age/Sex: 85/F : 1940 Unit#: [id number] Attend Dr: Elizabet Skinner MD Re10/20/25 Status: DEP REF Location: [facility] Disch: SPEC : [id number] GABRIELA: 10/20/25 STATUS: COMP REQ : [id number] RECD: 10/20/[address] [facility] [address]: Elizabet Skinner MD COMP: 10/20/25 ENTERED: 10/20/[address] [facility] [address]: ORDERED: CBC Auto Diff Test Result Flag Reference WBC 7.9 4.8-10.8 X10*3/uL RBC 3.85 L 4.20-5.50 X10*6/uL HGB 12.2 12.0-16.0 g/dl HCT 36.9 L 37.0-47.0 % MCV 95.8 80.0-98.0 fL MCH 31.7 27.0-33.0 pg MCHC 33.1 31.0-35.0 g/dl RDW 13.6 11.0-16.0 % PLT 220 160-400 X10*3/uL MPV 11.0 9.4-12.3 fL Neut Pct Auto 57.1 45-73 % ImGran Pct Auto 0.3 0.0-0.4 % Lymp Pct Auto 30.9 20-40 % Hidalgo Pct Auto 8.5 2-11 % Eos Pct Auto 2.8 0-4 % Baso Pct Auto 0.4 0-2 % NRBC Pct Auto 0.0 0.0-0.2 /100WBC ANC Neut Abs # 4.5 2.0-8.3 x10*3/uL ImGran Abs Auto 0.02 0.00-0.03 X10*3/uL Lymph Abs Auto 2.4 1.2-4.9 X10*3/uL Hidalgo Abs Auto 0.7 0.1-1.2 X10*3/uL Eos Abs Auto 0.2 0.0-0.4 X10*3/uL Baso Abs Auto 0.0 0.0-0.2 X10*3/uL NRBC Abs Auto 0.000 0.0-0.012 X10*3/uL Name: Vikki Phillips Age/Sex: 85/F : 1940 Unit#: [id number] Attend Dr: Elizabet Skinner MD Re10/20/25 Status: DEP REF Location: [facility] Disch: SPEC : [id number] GABRIELA: 10/20/25 STATUS: COMP REQ : [id number] RECD: 10/20/[address] [facility] [address]: Elizabet Skinner MD COMP: 10/20/25 ENTERED: 10/20/[address] [facility] [address]: ORDERED: Met Prof Fast, AST, ALT, Lipid Panel, Vitamin D 25-OH, Free T4, TSH Test Result Flag Reference Sodium 144 135-145 mmol/L Potassium 4.3 3.3-5.1 mmol/L CL 109 H 96-108 mmol/L CO2 27 22-29 mmol/L Gap 12 12-20 BUN 30 H 9-16 mg/dL Creat 0.86 0.5-1.4 mg/dL eGFR > 60 Chronic Kidney Disease: Estimated GFR < 60 mL/min/1.73m2 Severe Kidney Disease: Estimated GFR < 15 mL/min/1.73m2 FBS 91 60-99 mg/dL CA 9.2 # 8.4-10.2 mg/dL AST (GOT) 20 5-31 U/L ALT (GPT) 10 0-31 U/L Triglyceride 59 <150 mg/dL Desirable Triglyceride: less than 150 mg/dL Borderline High Triglyceride 150-199 mg/dL High Triglyceride: 200-499 mg/dL Very High Triglyceride: greater than or equal to 5OO mg/dL Cholesterol 160 <200 mg/dL Desirable Cholesterol: less than 200 mg/dL Borderline High Cholesterol: 200-239 mg/dL High Cholesterol: greater than 239 mg/dL LDL Calculated 88 <100 mg/dL Desirable LDL: less than 100 mg/dL Near Optimal/Above Optimal LDL: 110-129 mg/dL Borderline High LDL: 130-159 mg/dL High LDL: 160-189 mg/dL Very High LDL: greater than or equal to 190 mg/dL HDL 61 >40 mg/dL Desirable HDL: greater than 40 mg/dL Note: This HDL assay may give artificially low results in patients with liver disease. Vitamin D 25-OH 35.1 >30 ng/mL Health Based Reference Values* < 20 ng/mL Deficient 20-30 ng/mL Insufficient > 30 ng/mL Sufficient *Amaris MILLER. N Engl J Med. 2007;357:266-280 There is no well-established upper level of normal vitamin D levels. Some laboratories use 50 ng/mL as an upper limit of normal. However, toxicity is patient-dependent and may occur at any level. Careful correlation with the patient's presentation is necessary and, if there is concern for vitamin D toxicity, treatment should be considered irrespective of the serum level. Care must be taken in interpreting Vitamin D results from different laboratories and methodologies. Published data demonstrated that results from patients undergoing hemodialysis may show a negative bias when tested with various automated 25-OH vitamin D assays when compared to LC-MS/MS. When testing samples from patients whose predominant form of Vitamin D is Vitamin D2, such as patients receiving Vitamin D2 supplementation, results that are subtherapeutic should be confirmed with another method such as LC-MS/MS. Free T4 1.22 0.71-1.85 ng/dL TSH 3rd Gen. 1.20 0.32-4.0 uIU/mL TSH 3rd Generation ([facility]) Coding Level of Care Code Est Pt Level 4 (33275) Diagnoses Acquired hypothyroidism E03.9 Dyslipidemia E78.5 Osteopenia of lumbar spine M85.88 COPD (chronic obstructive pulmonary disease) J44.9 Nocturnal enuresis N39.44 Assessment & Plan Assessment & Plan (1) Acquired hypothyroidism: Code(s): E03.9 - Hypothyroidism, unspecified Category: Medical Plan: Continue levothyroxine 50 mcg daily (2) Dyslipidemia: Code(s): E78.5 - Hyperlipidemia, unspecified Category: Medical Plan: Continued on ezetimibe 10 mg daily (3) Osteopenia of lumbar spine: Comment: last bone density 2020 per pt Code(s): M85.88 - Other specified disorders of bone density and structure, other site Category: Medical Plan: Reinforced importance of doing regular weight-bearing exercise, continue taking calcium and vitamin-D 3 supplements (4) COPD (chronic obstructive pulmonary disease): Code(s): J44.9 - Chronic obstructive pulmonary disease, unspecified Category: Medical Plan: Strongly encouraged to stop smoking, currently on Wixela inhaler and uses albuterol as needed (5) Nocturnal enuresis: Code(s): N39.44 - Nocturnal enuresis Category: Medical Plan: The patient experiences urinary incontinence during sleep, likely due to pelvic floor muscle weakness. A medication option was discussed but declined by the patient due to concerns about the side effect of dry mouth, which she already experiences. Plan: Continue using absorbent pads and changing them frequently to prevent skin breakdown and infection. Advised to avoid drinking fluids late at night. Continue with Kegel exercises to strengthen pelvic floor muscles. Orders: Orders Free T4 (Free Thyroxine) 05/02/26 E03.9 - Hypothyroidism, unspecified, E78.5 - Hyperlipidemia, unspecified, M85.88 - Other specified disorders of bone density and structure, other site, J44.9 - Chronic obstructive pulmonary disease, unspecified Thyroid Stimulating Hormone 05/02/26 E03.9 - Hypothyroidism, unspecified, E78.5 - Hyperlipidemia, unspecified, M85.88 - Other specified disorders of bone density and structure, other site, J44.9 - Chronic obstructive pulmonary disease, unspecified Basic Metabolic Panel Fasting 05/02/26 E03.9 - Hypothyroidism, unspecified, E78.5 - Hyperlipidemia, unspecified, M85.88 - Other specified disorders of bone density and structure, other site, J44.9 - Chronic obstructive pulmonary disease, unspecified Aspartate Amino Transferase 05/02/26 E03.9 - Hypothyroidism, unspecified, E78.5 - Hyperlipidemia, unspecified, M85.88 - Other specified disorders of bone density and structure, other site, J44.9 - Chronic obstructive pulmonary disease, unspecified Lipid Panel 05/02/26 E03.9 - Hypothyroidism, unspecified, E78.5 - Hyperlipidemia, unspecified, M85.88 - Other specified disorders of bone density and structure, other site, J44.9 - Chronic obstructive pulmonary disease, unspecified Vitamin D 25-OH Total 05/02/26 E03.9 - Hypothyroidism, unspecified, E78.5 - Hyperlipidemia, unspecified, M85.88 - Other specified disorders of bone density and structure, other site, J44.9 - Chronic obstructive pulmonary disease, unspecified Hemoglobin and Hematocrit 05/02/26 E03.9 - Hypothyroidism, unspecified, E78.5 - Hyperlipidemia, unspecified, M85.88 - Other specified disorders of bone density and structure, other site, J44.9 - Chronic obstructive pulmonary disease, unspecified
--- OUTSIDE RECORDS SUMMARY | 2025-10-22 10:36 | XMS_ITS | Patient Health Record ---
[facility] Address [address] [place] [address] Care Team Providers Care Plant Accountant Name Role Phone Lindsay Traore Primary Care Provider Sheldon Lal Unavailable [phone] Allergies Allergen (clinical drug ingredient) Drug/Non Drug [...] Problem Acquired hammer toe of right foot ([id number]) Other hammer toe(s) (acquired), right foot (M20.41) Active confirmed Problem Raynaud's disease (286982045) Raynaud's disease without gangrene (I73.00) Active confirmed Plan Of Treatment Pending Test Test Name Order Date X ray : Foot, right 3V 09/25/2019 X ray : Foot, right 3V 05/06/2020 X ray : Foot, right 3V 05/22/2020 X ray : Foot, right 3V 06/12/2020 [id number], Toes 06/12/2020 Insurance Providers Payer Name Payer Address Payer Phone Subscriber Number Group Number Insured Name Patient Relationship to Insured Coverage Start Date Coverage End Date Medicare National [employer] [address] [place] [address] [id number] Vikki Phillips Self - patient is the insured [employer] [address] [place] [address] [id number] Vikki Phillips Self - patient is the insured Medical (General) History Medical History History ICD Code Arthritis Broken bones CAD (Cholesterol) Cataracts Lung disease Osteoporosis thyroid Chicken pox Joint implants/screws Surgical History Surgery Date(Month/Year) appendectomy 1955 hysterectomy 1976 broke ankle 1984 HT R5th toe, Skin Disease R 04/30/2020 gall bladder surgery Foot right surgery 04/30/20
--- OUTSIDE RECORDS SUMMARY | 2025-10-22 10:36 | XMS_ITS | Encounter Summary ---
Author Organization [facility] Address [address] [place] [address] Phone Care Team Providers Care Regulatory Affairs Assistant Name Role Phone Unknown, Unknown Primary Care Provider Roc Cosme MD Primary Care Provider Unavail able Encounter Details Date Type Department Care Team (Latest Contact Info) Description 11/14/2018 Transcribe Orders [facility] [address] 3rd Floor, [address] [place] [address] Oniel Yost DO [address] [facility] [address] [place] [address] [phone] [email or web address] Chest pain, unspecified type (Primary [...] Primary documented in this encounter Care Teams Regulatory Affairs Assistant Relationship Specialty Start Date End Date Unknown, Darlyn, PCP - General 11/14/18 12/05/18 Roc Vickers MD PCP - General Endocrinology 12/06/18 documented as of this encounter Additional Source Comments The information contained in this document represents components of the legal health record. It is not the complete legal health record.[facility]
--- OUTSIDE RECORDS SUMMARY | 2025-10-22 10:36 | XMS_ITS | Encounter Summary ---
Author Organization [facility] Address [address] [place] [address] Phone Care Team Providers Care Test Engine Evaluator Name Role Phone Roc Vickers MD Primary Care Provider Unavail able Encounter Details Date Type Department Care Team (Latest Contact Info) Description 12/06/2018 Ancillary Orders [facility] [address] [facility] 3rd Floor, [address] [place] [address] Oniel Yost DO [address] [facility] [address] [place], [place] [phone] [email or web address] Chest pain, unspecified type Social [...] type documented in this encounter Care Teams Test Engine Evaluator Relationship Specialty Start Date End Date Roc Vickers MD PCP - General Endocrinology 12/06/18 documented as of this encounter Additional Source Comments The information contained in this document represents components of the legal health record. It is not the complete legal health record.[facility]
--- OUTSIDE RECORDS SUMMARY | 2025-10-22 10:36 | XMS_ITS | Encounter Summary ---
Author Organization [facility] Address [address] [place] [address] Phone Care Team Providers Care Junior Linux Systems Administrator Name Role Phone Roc Vickers MD Primary Care Provider Unavail able Encounter Details Date Type Department Care Team (Late st Contact Info) Description 12/06/2018 Ancillary Orders [facility] [address] [facility] [address] 3rd Floor, [address] [place] [address] Anila Mascorro PA [address] [place] [address] Social History Tobacco Use Types Packs/Day Years [...] on filedocumented in this encounter Care Teams Junior Linux Systems Administrator Relationship Specialty Start Date End Date Roc Vickers MD PCP - General Endocrinology 12/06/18 documented as of this encounter Additional Source Comments The information contained in this document represents components of the legal health record. It is not the complete legal health record.[facility]
--- OUTSIDE RECORDS SUMMARY | 2025-10-22 10:36 | XMS_ITS | Clinical Summary ---
Author Organization [facility] Address [address] [facility] [address] [facility] [address] [place] [phone] Phone Care Team Providers Care Medicinal Plant Picker Name Role Phone Roc Vickers MD Primary [...] file Insurance MEDICARE PART A & [employer]LEMENT MEDICARE PART A & [employer] SU[employer]MENT MEDICARE PART A & [employer] SU[employer]MENT MEDICARE PART A & [employer] SU[employer] MEDICARE PART A & [employer] SU[employer]LEMENT MEDICARE PART A & B [place] [employer] MEDEX SUPPLEMENT MEDICARE PART A & [employer] SU[employer]LEMENT MEDICARE PART A & [employer] SU[employer]LEMENT MEDICARE PART A & B [employer]EX SUPPLEMENT Care Teams Medicinal Plant Picker Relationship Specialty Start Date End Date Roc Vickers MD PCP - General Endocrinology 12/06/18 Additional Source Comments The information contained in this document represents components of the legal health record. It is not the complete legal health record.[facility]
--- OUTSIDE RECORDS SUMMARY | 2025-10-22 10:36 | XMS_ITS | Encounter Summary ---
Author Organization [facility] Address [address] [address] Phone Care Team Providers Care Odd Piece Checker Name Role Phone Roc Vickers MD Primary [...] Expiration Date Visits Re quested Visits Authorized [id number] Closed 11/14/2018 11/14/2019 1 1 Encounter Details Date Type Department Care Team (Latest Contact Info) Description 12/06/2018 Ancillary Orders [facility] [address] [facility] [address]rd [facility], [address] [place] [address] Oniel Yost DO [address] [address] [email or web address] Chest pain, unspecified type Social History [...] in SPECT format, reconstructed tomographically and compared [id number] in short axis, horizontal long axis and [...] type documented in this encounter Care Teams Odd Piece Checker Relationship Specialty Start Date End Date Roc Vickers MD PCP - General Endocrinology 12/06/18 documented as of this encounter Additional Source Comments The information contained in this document represents components of the legal health record. It is not the complete legal health record.[facility]
== END 2025-10-22 11:44 | disposition home or self-care (01) ==
LOC: HO.HMCC 10:28
PROVIDERS: PCP Internal Medicine; Visit Provider Internal Medicine
DX: E03.9 Hypothyroidism, unspecified (principal); E78.5 Hyperlipidemia, unspecified; M85.88 Other specified disorders of bone density and structure, other site; J44.9 Chronic obstructive pulmonary disease, unspecified; N39.44 Nocturnal enuresis

== ENCOUNTER → 2025-10-22 10:27 | Outpatient (BNVA) | payer MEDICARE, SELFPAY | PROVIDERS: PCP Internal Medicine; Visit Provider Internal Medicine | DX: N39.44 Nocturnal enuresis (principal); E03.9 Hypothyroidism, unspecified; E78.5 Hyperlipidemia, unspecified; M85.89 Other specified disorders of bone density and structure, multiple sites; J44.9 Chronic obstructive pulmonary disease, unspecified; Z72.0 Tobacco use | CPT/HCPCS: 99212 ==